=== PATIENT | female | born 1945 | race Caucasian/White ===

== ENCOUNTER 2018-03-24 15:10 | Emergency (ER) | payer OTHER ==
[~2018-03-24] VITALS: Ht 167.6 cm; Wt 78.5 kg
[~2018-03-24 15:10] MED LIST: ALBU90OI61 INH; AMOCLA500 PO; ASPI325 PO; ATOR10; CEPH500 PO; CITA20; CITA20 PO; CLON.1 PO; Citalopram HBr20 MG PO; DILT120 PO; DILT180 PO; Dulcolax5 MG PO; ESTR1; ESTR2 PO; GABA300 PO; HYDACE5 PO; IBUP400 PO; LEVFLO500 PO; LIDO5TP TOP; LISI20 PO; LOVA20; LOVA40 PO; Mirapex0.5 MG PO; Mupirocin22 GM TOP; NAPR500 PO; OXYACE5T PO; OXYC10TA19 PO; OXYC5; OXYC5 PO; PRED10 PO; Percocet 5-3251 EACH PO; TRAM50 PO; VENL75ER PO; VICODIN ES 7.51 EACH PO
[2018-03-24 16:12] LABS: BASOPHILS ABSOLUTE AUTO 0.08 K/mm3 (0.00-0.23); BASOPHILS PERCENT AUTO 1 % (0-2); EOSINOPHILS ABSOLUTE AUTO 0.31 K/mm3 (0.00-0.68); EOSINOPHILS PERCENT AUTO 3 % (0-6); Hemoglobin 13.7 g/dL (11.5-16.0); IMMATURE GRAN PERCENT AUTO 1 % (0-1); LYMPHOCYTES ABSOLUTE AUTO 1.66 K/mm3 (0.84-5.20); LYMPHOCYTES PERCENT AUTO 17 % (21-46); MONOCYTES ABSOLUTE AUTO 0.81 K/mm3 (0.16-1.47); MONOCYTES PERCENT AUTO 8 % (4-13); Mean Corpuscular HGB 28.7 pg (26.0-34.0); Mean Corpuscular HGB Conc 32.6 g/dL (31.5-36.5); Mean Corpuscular Volume 88 fL (80-100); Mean Platelet Volume 9.2 fL (9.1-12.4); NEUTROPHILS ABSOLUTE AUTO 6.95 K/mm3 (1.96-9.15); NEUTROPHILS PERCENT AUTO 70 % (41-73); Platelet Count 306 K/mm3 (150-400); RDW Coefficient Variation 13.7 % (11.7-14.2); RDW Standard Deviation 44.5 fL (35.1-46.3); Red Blood Cell Count 4.78 M/mm3 (3.80-5.20); White Blood Cell Count 9.91 K/mm3 (4.00-11.30)
[2018-03-24 16:37] LABS: Alanine Aminotransfer (ALT/SGP 29 U/L (12-78); Albumin, Blood 3.3 g/dL (3.4-5.0); Albumin/Globulin Ratio 0.8 (0.8-1.8); Alk Phos 170 U/L (50-136); Anion Gap 7 mmol/L (6-16); Aspartate Aminotrans (AST/SGOT 20 U/L (12-37); Bilirubin, Total 0.2 mg/dL (0.1-1.0); Blood Urea Nitrogen 16 mg/dL (8-24); Bun/Creatinine Ratio 17.7 (12.0-20.0); CO2, Blood 27 mmol/L (21-32); Calcium, Blood 9.2 mg/dL (8.5-10.1); Chloride, Blood 107 mmol/L (98-108); Globulin, Blood 4.3 g/dL (2.2-4.0); Glomerular Filtration Rate >60 (60-); Glucose, Blood 105 mg/dL (70-99); Potassium, Blood 4.1 mmol/L (3.5-5.5); Sodium, Blood 141 mmol/L (136-145); Total Protein, Blood 7.6 g/dL (6.4-8.2)
[2018-03-24 18:01] LABS: Source, Urine Clean Catch
[2018-03-24 18:08] LABS: Bilirubin, Urine Neg (Neg); Blood, Urine 1+ (Neg); Glucose Qualitative, Urine Neg (Neg); Ketones, Urine Neg (Neg); Leukocyte Esterase, Urine Neg (Neg); Nitrite, Urine Neg (Neg); Protein, Urine Neg (Neg); Urobilinogen, Urine NORM (Normal)
[2018-03-24 18:18] LABS: Appearance, Urine Clear (Clear); Color, Urine Pale Yellow (P-Yellow)
[2018-03-24 18:19] LABS: Bacteria Not Seen /hpf; Red Blood Cells, Urine Not Seen /hpf (0-2); Squamous Epithelial Cells Not Seen /hpf (Few); White Blood Cells, Urine Not Seen /hpf (0-5)
[2018-03-24 19:45] LABS: Troponin I <0.015 ng/mL (0.000-0.040)
[2018-03-24] MEDS ORDERED: Pepcid20 MG PO (21:01)
[2018-03-24] MEDS ORDERED: PROM25 PO (21:01)
== END 2018-03-24 21:21 | disposition home or self-care (01) ==
LOC: ER 15:10
PROVIDERS: Emergency Medicine
DX: R10.10 Upper abdominal pain, unspecified (principal); F17.210 Nicotine dependence, cigarettes, uncomplicated; Z91.040 Latex allergy status; Z88.8 Allergy status to other drugs, medicaments and biological substances; Z88.1 Allergy status to other antibiotic agents; Z79.899 Other long term (current) drug therapy
CPT/HCPCS: 36415; 80053; 81001; 83690; 84443; 84484; 85025; 93005; 93010; 96374; 96375; 96376; 99284; J2405; J2550; J3010; J7120

== ENCOUNTER 2018-04-07 00:40 | Emergency (ER) | payer OTHER ==
[~2018-04-07] VITALS: Ht 167.6 cm; Wt 77.6 kg
[~2018-04-07 00:40] MED LIST changes: +PROM25 PO; +Pepcid20 MG PO
[2018-04-07] MEDS ORDERED: PRAM.5 PO (01:34)
[2018-04-07] MEDS ORDERED: LISI20 PO (01:34)
[2018-04-07 01:36] LABS: BASOPHILS ABSOLUTE AUTO 0.08 K/mm3 (0.00-0.23); BASOPHILS PERCENT AUTO 1 % (0-2); EOSINOPHILS ABSOLUTE AUTO 0.34 K/mm3 (0.00-0.68); EOSINOPHILS PERCENT AUTO 4 % (0-6); Hematocrit 38.9 % (33.0-51.0); Hemoglobin 12.8 g/dL (11.5-16.0); IMMATURE GRAN ABSOLUTE AUTO 0.07 K/mm3 (0.00-0.10); IMMATURE GRAN PERCENT AUTO 1 % (0-1); LYMPHOCYTES ABSOLUTE AUTO 2.01 K/mm3 (0.84-5.20); LYMPHOCYTES PERCENT AUTO 23 % (21-46); MONOCYTES ABSOLUTE AUTO 0.97 K/mm3 (0.16-1.47); MONOCYTES PERCENT AUTO 11 % (4-13); Mean Corpuscular HGB 29.2 pg (26.0-34.0); Mean Corpuscular HGB Conc 32.9 g/dL (31.5-36.5); Mean Corpuscular Volume 89 fL (80-100); Mean Platelet Volume 9.1 fL (9.1-12.4); NEUTROPHILS ABSOLUTE AUTO 5.21 K/mm3 (1.96-9.15); NEUTROPHILS PERCENT AUTO 60 % (41-73); Platelet Count 299 K/mm3 (150-400); RDW Coefficient Variation 13.8 % (11.7-14.2); Red Blood Cell Count 4.39 M/mm3 (3.80-5.20); White Blood Cell Count 8.68 K/mm3 (4.00-11.30)
[2018-04-07 01:55] LABS: Albumin, Blood 2.8 g/dL (3.4-5.0); Albumin/Globulin Ratio 0.7 (0.8-1.8); Bilirubin, Total 0.3 mg/dL (0.1-1.0); Bun/Creatinine Ratio 22.5 (12.0-20.0); Calcium, Blood 9.2 mg/dL (8.5-10.1); Creatinine, Blood 0.98 mg/dL (0.40-1.00); Potassium, Blood 3.8 mmol/L (3.5-5.5); Total Protein, Blood 6.8 g/dL (6.4-8.2)
[2018-04-07 02:29] LABS: Source, Urine Clean Catch
[2018-04-07 02:40] LABS: Bilirubin, Urine Neg (Neg); Blood, Urine Neg (Neg); Glucose Qualitative, Urine Neg (Neg); Ketones, Urine Neg (Neg); Leukocyte Esterase, Urine Neg (Neg); Nitrite, Urine Neg (Neg); Protein, Urine Neg (Neg); Urobilinogen, Urine NORM (Normal)
[2018-04-07 02:45] LABS: Appearance, Urine Clear (Clear); Color, Urine Yellow (P-Yellow)
[2018-04-07] MEDS ORDERED: Miralax17 GM PO (04:42)
== END 2018-04-07 04:45 | disposition home or self-care (01) ==
LOC: ER 00:40
PROVIDERS: Emergency Medicine
DX: K59.00 Constipation, unspecified (principal); K57.30 Diverticulosis of large intestine without perforation or abscess without bleeding; F17.210 Nicotine dependence, cigarettes, uncomplicated; Z91.040 Latex allergy status; Z88.5 Allergy status to narcotic agent; Z88.1 Allergy status to other antibiotic agents; Z88.8 Allergy status to other drugs, medicaments and biological substances; Z79.899 Other long term (current) drug therapy
CPT/HCPCS: 36415; 74176; 80053; 81003; 83690; 85025; 93005; 93010; 96374; 99284; J3010

== ENCOUNTER 2018-12-23 13:11 | Emergency (ER) | payer OTHER ==
[~2018-12-23] VITALS: Ht 167.6 cm; Wt 71.7 kg
[~2018-12-23 13:11] MED LIST changes: +Miralax17 GM PO; +PRAM.5 PO
[2018-12-23] MEDS ORDERED: TIOT18 INH (14:04)
[2018-12-23] MEDS ORDERED: ASPI81CH PO (14:04)
[2018-12-23] MEDS ORDERED: VENL75ER PO (14:04)
[2018-12-23] MEDS ORDERED: Ultram50 MG PO (14:13)
== END 2018-12-23 14:15 | disposition home or self-care (01) ==
LOC: ER 13:11
DX: M25.511 Pain in right shoulder (principal); M19.90 Unspecified osteoarthritis, unspecified site; M79.10 Myalgia, unspecified site; F17.210 Nicotine dependence, cigarettes, uncomplicated; Z88.5 Allergy status to narcotic agent; Z91.040 Latex allergy status; Z88.8 Allergy status to other drugs, medicaments and biological substances; Z79.899 Other long term (current) drug therapy
CPT/HCPCS: 99282

== ENCOUNTER 2019-05-31 20:57 | Inpatient (IN) | payer OTHER ==
[~2019-05-31] VITALS: Ht 167.6 cm; Wt 80.3 kg
[~2019-05-31 20:57] MED LIST changes: +ASPI81CH PO; +TIOT18 INH; +Ultram50 MG PO
[2019-05-31 21:27] LABS: BASOPHILS PERCENT AUTO 1 % (0-2); EOSINOPHILS ABSOLUTE AUTO 0.44 K/mm3 (0.00-0.68); EOSINOPHILS PERCENT AUTO 4 % (0-6); Hematocrit 41.2 % (33.0-51.0); Hemoglobin 13.5 g/dL (11.5-16.0); IMMATURE GRAN ABSOLUTE AUTO 0.08 K/mm3 (0.00-0.10); IMMATURE GRAN PERCENT AUTO 1 % (0-1); LYMPHOCYTES ABSOLUTE AUTO 2.42 K/mm3 (0.84-5.20); LYMPHOCYTES PERCENT AUTO 24 % (21-46); MONOCYTES PERCENT AUTO 11 % (4-13); Mean Corpuscular HGB Conc 32.8 g/dL (31.5-36.5); Mean Corpuscular Volume 88 fL (80-100); Mean Platelet Volume 9.5 fL (9.1-12.4); NEUTROPHILS ABSOLUTE AUTO 5.96 K/mm3 (1.96-9.15); NEUTROPHILS PERCENT AUTO 59 % (41-73); Platelet Count 293 K/mm3 (150-400); RDW Coefficient Variation 13.9 % (11.7-14.2); RDW Standard Deviation 45.5 fL (35.1-46.3); Red Blood Cell Count 4.66 M/mm3 (3.80-5.20)
[2019-05-31 21:49] LABS: Albumin, Blood 3.5 g/dL (3.4-5.0); Albumin/Globulin Ratio 0.9 (0.8-1.8); Bilirubin, Total 0.3 mg/dL (0.1-1.0); Bun/Creatinine Ratio 14.5 (12.0-20.0); Calcium, Blood 9.1 mg/dL (8.5-10.1); Creatinine, Blood 1.52 mg/dL (0.40-1.00); Globulin, Blood 3.9 g/dL (2.2-4.0); Potassium, Blood 3.9 mmol/L (3.5-5.5); Total Protein, Blood 7.4 g/dL (6.4-8.2)
[2019-05-31 22:07] LABS: Troponin I 1.27 ng/mL (0.000-0.040)
--- NOTE | 2019-06-01 04:06 | NUR ---
SHIFT SUMMARY PT ARRIVED [facility] IN NO DISTRESS. PT DENIES ANY CX PAIN. PT HAS BEEN SLEEPING WELL SINCE ARRIVING TO FLOOR. PT DOES CONTINUE TO HAVE A HARSH HACKING COUGH AT TIMES. PT IS CURRENTLY SLEEPING AND BREATHING EASY. WILL CONTINUE TO MONITOR. CALL LIGHT IN REACH.
--- NOTE | 2019-06-01 14:12 | NUR ---
BOTH AND HAVE ROUNDED ON HER. SHE WAS NPO FOR BREAKFAST BUT RECEIVED LUNCH BECAUSE HER ANGIOGRAM WILL BE TOMORROW MORNING. SHE WILL BE NPO AFTER MN EXCEPT WATER AND MEDS. NO CP. HER TROPONIN HAS NOW GONE DOWN TO 0.854. TELE IS NSR. SHE SAID SHE HAD DIFFICULTY VOIDING FIRST THING THIS MORNING BUT WAS ABLE TO LATER. SINCE THEN IVF'S HAVE BEEN STARTED AT 100/HR.SHE HAD A ROOM FULL OF COMPANY THAT JUST LEFT. NOW SHE WANTS TO TAKE A NAP.
--- NOTE | 2019-06-01 15:33 | NUR ---
ASLEEP. NO COMPLAINTS.
--- NOTE | 2019-06-01 17:32 | NUR ---
SHE HAS BEEN NAPPING A LOT SINCE HER COMPANY LEFT AFTER LUNCH. NO C/O CP TODAY. VOIDING WELL. IVF'S STARTED AT NOON AND ARE ONGOING. LAST TROPONIN ON A DOWNWARD TREND.
--- NOTE | 2019-06-01 18:09 | NUR ---
SHE HAS 2 VISITORS. SHE IS EATING DINNER. NO COMPLAINTS. SHE UNDERSTANDS SHE WILL BE NPO AFTER MIDNIGHT EXCEPT FOR WATER AND MEDS.
--- NOTE | 2019-06-02 04:03 | NUR ---
Shift summary: pt appeared to have slept well overnight with no c/o discomfort. Pt npo p mn for an angiocath in am. Pt on telemetry- NSR at 70. No chest pain reported.
[2019-06-02 05:52] LABS: Bun/Creatinine Ratio 19.4 (12.0-20.0); Calcium, Blood 8.8 mg/dL (8.5-10.1); Creatinine, Blood 1.03 mg/dL (0.40-1.00); Potassium, Blood 4.7 mmol/L (3.5-5.5)
--- NOTE | 2019-06-02 06:46 | NUR ---
Pt to bolt labeler for an angiogram
--- NOTE | 2019-06-02 13:21 | NUR ---
PT ARRIVAL. PT ARRIVED ON UNIT VIA W/C AND IS S/P ANGIO WITH STENT PLACEMENT. PT HAS RIGHT WRIST SITE WITH TR BAND WITH 16MLS OF AIR. PT DENIES ANY CHEST PAIN/PRESSURE, N/V OR SOB AT THIS TIME. VS STABLE, WILL CONTINUE TO MONITOR.
--- NOTE | 2019-06-02 17:45 | NUR ---
SHIFT SUMMARY. NO ACUTE CHANGES NOTED. PT DENIES ANY CHEST PAIN/PRESSURE, ANGIO SITE IS C/D/I, TR BAND IS STILL IN PLACE DUE TO SOME BLEEDING DURING DEFLATION. PT RECIEVED AGGRASTAT, HEPARIN, BRILENTA AND ELIQUIS. PT'S VS HAVE BEEN STABLE. PT IS A&Ox4 AND SBA IN THE ROOM. FAMILY AT THE BEDSIDE. CALL LIGHT INREACH, BED IS LOCKED AND LOW WILL CONTINUE TO MONITOR UNTIL REPORT IS GIVEN TO ONCOMING RN.
--- NOTE | 2019-06-02 23:25 | NUR ---
Assumed care of pt at approx 1900. Pt presents with family at bedside at arrival, breathing easy and unlabored, denies chest pain or pressure. Pt with arm board and TR band in place at time of shift change. At time of shift change, Pt with 8cc in balloon, the pt was fully recovered at 2320. New IV access to pt LFA. BANNER IV access D/C d/t leaking found upon assessment. Pt with VSS. Pt with complaint of nasal congestion, Provider Danny called and orders recieved to give saline nasal spray PRN. Pt with stated relief. No changes from initial shift assessment. Pt family remains at bedside this night. Report given to YEE Unger to assume care at this time.
--- NOTE | 2019-06-03 | NUR ---
ASSUMED CARE PT CARE ASSUMED AT APPROXIMATELY 0000 THIS AM. PT IS RESTING IN BED WITH SON AT BEDSIDE. R RADIAL SITE NOTED TO HAVE EDEMA IN SURROUNDING ARM. TR BAND REMAINS IN PLACE, COMPLETELY DEFLATED WITH SMALL AMOUNT OF DRY, RED DRAINAGE UNDER. FOREARM IS SLIGHTLY HARD ABOVE TR SITE, BUT NOT NOTED SWELLING OR HEMATOMA TO THIS AREA. SMALL AMOUNT OF BRUISING NOTED UNDER INCISION SITE. PT DENIES PAIN ON PALPATION TO SITE AND FOREARM. PT DENIES ANY PAIN OR DYSPNEA AT THIS TIME. VSS. WILL CONTINUE TO MONITOR. BED IN LOW POSITION, CALL LIGHT IN REACH.
--- NOTE | 2019-06-03 06:49 | NUR ---
SHIFT SUMMARY PT HAS REMAINED AOX4 THROUGHOUT SHIFT. VSS. PLEASANT AND COOPERATIVE WITH CARE. R RADIAL SITE REMAINS UNCHANGED FROM INITIAL ASSESSMENT APON ASSUMPTION OF CARE AT APPROXIMATELY 0000. CLEAR OCCLUSIVE DRESSING IN PLACE WITH ARM BOARD. EDUCATION REITERATED ON MINIMIZING USE OF R WRIST AT THIS TIME. PT CONTINUES TO HAVE SWELLING IN ARM. PT DENIES PAIN ON PALPATION OF FOREARM. SLIGHT BRUISING NOTED AROUND PUNCTURE SITE. NO LEAKING FROM SITE NOTED. PT CONTINUES TO AMBULATE WITH STANDBY ASSIST TO BATHROOM. PT REPORTING SOME "GAS PAIN" LAST NIGHT AND ASKED FOR SOMETHING FOR RELIEF, BUT WAS SLEEPING WHEN STAFF WAS IN TO ASSIST- DID NOT REPORT DISCOMFORT WHEN AWAKE LATER IN AM. FAMILY HAS REMAINED AT BEDSIDE THROUGHOUT THE NIGHT. NO OTHER CHANGES NOTED FROM SHIFT ASSESSMENT. WILL CONTINUE TO MONITOR AND REPORT TO ONCOMING SHIFT RN. BED IN LOW POSITION, CALL LIGHT IN REACH.
--- NOTE | 2019-06-03 08:28 | NUR ---
AM NOTE. ASSUMED CARE OF PT APROX 0700. PT IS A&Ox4 AND IND IN THE ROOM. PT IS S/P ANGIO WITH RIGHT WRIST SITE. SITE IS C/D/I WITH SOME BRUISING AND SWELLING NOTED IN THE ARM FROM INFILTRATION OF HER IV. PT DENIES ANY CHEST PAIN/PRESSURE AT THIS TIME. PT'S VS STABLE. L/S CLEAR T/O DIM IN THE BASES PT IS ON RA WITH O2 SATS >90%. PT HAD BM THIS MORNING AND NOTED THERE WAS BLOOD IN THE TOILET, BLOOD WAS NOTED TO BE ON THE STOOL BUT THE STOOL WAS LIGHT BROWN, SOFT AND FORMED. PT DENIED A KNOWN HX OF HEMORRHOIDS OR GI BLEEDS. PT STATES THIS HAS NEVER HAPPENED BEFORE. CALL LIGHT IN REACH, BED IS LOCKED AND LOW WILL CONTINUE TO MONITOR.
[2019-06-03] MEDS ORDERED: ATOR40TA PO (13:18)
[2019-06-03] MEDS ORDERED: ASPI81CH PO (13:18)
[2019-06-03] MEDS ORDERED: METO25ER PO (13:19)
[2019-06-03] MEDS ORDERED: TICA90TA PO (13:19)
== END 2019-06-03 13:40 | disposition home or self-care (01) | DRG 247 ==
LOC: ER 20:57 → MEDS 22:48 → PCU 06-02 09:52
PROVIDERS: Emergency Medicine; Hospitalist; ADMIT Family Medicine
PROC: 4A023N7 Measurement of Cardiac Sampling and Pressure, Left Heart, Percutaneous Approach (ICD-10-PCS; principal; 2019-06-02)
PROC: 027034Z Dilation of Coronary Artery, One Artery with Drug-eluting Intraluminal Device, Percutaneous Approach (ICD-10-PCS; 2019-06-02)
PROC: B210YZZ Fluoroscopy of Single Coronary Artery using Other Contrast (ICD-10-PCS; 2019-06-02)
DX: I21.4 Non-ST elevation (NSTEMI) myocardial infarction (principal); N17.9 Acute kidney failure, unspecified; I25.10 Atherosclerotic heart disease of native coronary artery without angina pectoris; I10 Essential (primary) hypertension; F17.210 Nicotine dependence, cigarettes, uncomplicated
CPT/HCPCS: 36415; 71046; 80048; 80053; 84484; 85025; 85347; 93005; 93010; 93306; 93458; 94640; 99152; 99153; 99285-25; C1725; C1769; C1874; C1887; C1894; C9600; J1644; J2250; J2405; J3010; J3246; J7030; Q9967

== ENCOUNTER 2019-08-06 21:12 | Emergency (ER) | payer OTHER ==
[~2019-08-06] VITALS: Ht 167.6 cm; Wt 75.3 kg
[~2019-08-06 21:12] MED LIST changes: +ATOR40TA PO; +METO25ER PO; +TICA90TA PO
[2019-08-06 22:13] LABS: BASOPHILS ABSOLUTE AUTO 0.09 K/mm3 (0.00-0.23); BASOPHILS PERCENT AUTO 1 % (0-2); EOSINOPHILS ABSOLUTE AUTO 0.46 K/mm3 (0.00-0.68); EOSINOPHILS PERCENT AUTO 4 % (0-6); Hematocrit 26.6 % (33.0-51.0); IMMATURE GRAN ABSOLUTE AUTO 0.21 K/mm3 (0.00-0.10); IMMATURE GRAN PERCENT AUTO 2 % (0-1); LYMPHOCYTES PERCENT AUTO 15 % (21-46); MONOCYTES ABSOLUTE AUTO 0.99 K/mm3 (0.16-1.47); MONOCYTES PERCENT AUTO 9 % (4-13); Mean Corpuscular HGB 26.1 pg (26.0-34.0); Mean Corpuscular HGB Conc 30.1 g/dL (31.5-36.5); Mean Corpuscular Volume 87 fL (80-100); Mean Platelet Volume 9.6 fL (9.1-12.4); NEUTROPHILS ABSOLUTE AUTO 8.26 K/mm3 (1.96-9.15); NEUTROPHILS PERCENT AUTO 71 % (41-73); Platelet Count 426 K/mm3 (150-400); RDW Standard Deviation 47.9 fL (35.1-46.3); Red Blood Cell Count 3.07 M/mm3 (3.80-5.20); White Blood Cell Count 11.71 K/mm3 (4.00-11.30)
[2019-08-06 22:31] LABS: Albumin, Blood 3.1 g/dL (3.4-5.0); Albumin/Globulin Ratio 0.8 (0.8-1.8); Bilirubin, Total 0.2 mg/dL (0.1-1.0); Bun/Creatinine Ratio 22.5 (12.0-20.0); Calcium, Blood 9.1 mg/dL (8.5-10.1); Creatinine, Blood 1.2 mg/dL (0.40-1.00); Globulin, Blood 3.9 g/dL (2.2-4.0)
[2019-08-06 23:58] LABS: Source, Urine Clean Catch
[2019-08-07] MEDS ORDERED: VARE1
[2019-08-07 00:11] LABS: Bilirubin, Urine Neg (Neg); Blood, Urine Neg (Neg); Glucose Qualitative, Urine Neg (Neg); Ketones, Urine 1+ (Neg); Leukocyte Esterase, Urine 1+ (Neg); Nitrite, Urine Neg (Neg); Protein, Urine 1+ (Neg); Specific Gravity, Urine 1.025 (1.003-1.022); Urobilinogen, Urine 1+ (Normal)
[2019-08-07] MEDS ORDERED: Ferrous Sulfat325 MG PO (00:17)
[2019-08-07 00:18] LABS: Appearance, Urine Clear (Clear); Color, Urine Yellow (P-Yellow)
[2019-08-07 00:19] LABS: Bacteria Few /hpf; Red Blood Cells, Urine Not Seen /hpf (0-2); Squamous Epithelial Cells Few /hpf (Few)
== END 2019-08-07 01:10 | disposition home or self-care (01) ==
LOC: ER 21:12
PROVIDERS: Emergency Medicine
DX: D64.9 Anemia, unspecified (principal); I25.2 Old myocardial infarction; F17.210 Nicotine dependence, cigarettes, uncomplicated; Z91.040 Latex allergy status; Z88.5 Allergy status to narcotic agent; Z88.8 Allergy status to other drugs, medicaments and biological substances; Z88.1 Allergy status to other antibiotic agents; Z79.899 Other long term (current) drug therapy; Z79.82 Long term (current) use of aspirin; Z79.02 Long term (current) use of antithrombotics/antiplatelets
CPT/HCPCS: 36415; 80053; 81001; 85025; 87086; 93005; 93010; 99283-25

== ENCOUNTER → 2019-08-19 | Outpatient (CLI) | payer OTHER ==
[~2019-08-19] MED LIST changes: +Ferrous Sulfat325 MG PO; +VARE1
[2019-08-19 18:27] LABS: BASOPHILS ABSOLUTE AUTO 0.09 K/mm3 (0.00-0.23); BASOPHILS PERCENT AUTO 1 % (0-2); EOSINOPHILS ABSOLUTE AUTO 0.49 K/mm3 (0.00-0.68); EOSINOPHILS PERCENT AUTO 4 % (0-6); Hematocrit 27.9 % (33.0-51.0); Hemoglobin 8.2 g/dL (11.5-16.0); IMMATURE GRAN PERCENT AUTO 2 % (0-1); LYMPHOCYTES ABSOLUTE AUTO 1.69 K/mm3 (0.84-5.20); LYMPHOCYTES PERCENT AUTO 14 % (21-46); MONOCYTES PERCENT AUTO 8 % (4-13); Mean Corpuscular HGB 27.3 pg (26.0-34.0); Mean Corpuscular HGB Conc 29.4 g/dL (31.5-36.5); NEUTROPHILS ABSOLUTE AUTO 8.47 K/mm3 (1.96-9.15); NEUTROPHILS PERCENT AUTO 71 % (41-73); Platelet Count 400 K/mm3 (150-400); RDW Coefficient Variation 21.8 % (11.7-14.2); RDW Standard Deviation 71.7 fL (35.1-46.3); White Blood Cell Count 11.94 K/mm3 (4.00-11.30)
[2019-08-19 18:28] LABS: Mean Corpuscular Volume 93 fL (80-100)
[2019-08-19 18:31] LABS: Percent Saturation 75.6 % (15.0-50.0)
== END | disposition home or self-care (01) ==
LOC: LAB SHORT 14:35 → LAB 14:35
PROVIDERS: Hospitalist
DX: D50.9 Iron deficiency anemia, unspecified (principal)
CPT/HCPCS: 83540; 83550; 85025

== ENCOUNTER 2019-12-24 18:24 | Inpatient (IN) | payer OTHER ==
[~2019-12-24] VITALS: Ht 167.6 cm; Wt 70.8 kg
[2019-12-24 19:21] LABS: BASOPHILS ABSOLUTE AUTO 0.08 K/mm3 (0.00-0.23); BASOPHILS PERCENT AUTO 1 % (0-2); EOSINOPHILS ABSOLUTE AUTO 0.33 K/mm3 (0.00-0.68); EOSINOPHILS PERCENT AUTO 3 % (0-6); Hematocrit 21.7 % (33.0-51.0); Hemoglobin 6.6 g/dL (11.5-16.0); IMMATURE GRAN ABSOLUTE AUTO 0.08 K/mm3 (0.00-0.10); IMMATURE GRAN PERCENT AUTO 1 % (0-1); LYMPHOCYTES ABSOLUTE AUTO 1.83 K/mm3 (0.84-5.20); LYMPHOCYTES PERCENT AUTO 17 % (21-46); MONOCYTES ABSOLUTE AUTO 1.18 K/mm3 (0.16-1.47); MONOCYTES PERCENT AUTO 11 % (4-13); Mean Corpuscular HGB 26.9 pg (26.0-34.0); Mean Corpuscular HGB Conc 30.4 g/dL (31.5-36.5); Mean Corpuscular Volume 89 fL (80-100); Mean Platelet Volume 9.5 fL (9.1-12.4); NEUTROPHILS ABSOLUTE AUTO 7.07 K/mm3 (1.96-9.15); NEUTROPHILS PERCENT AUTO 67 % (41-73); Platelet Count 370 K/mm3 (150-400); RDW Coefficient Variation 15.1 % (11.7-14.2); RDW Standard Deviation 48.9 fL (35.1-46.3); Red Blood Cell Count 2.45 M/mm3 (3.80-5.20); White Blood Cell Count 10.57 K/mm3 (4.00-11.30)
[2019-12-24 19:55] LABS: Troponin I <0.015 ng/mL (0.000-0.040)
[2019-12-24 20:02] LABS: Alanine Aminotransfer (ALT/SGP 18 U/L (12-78); Albumin, Blood 2.8 g/dL (3.4-5.0); Albumin/Globulin Ratio 0.8 (0.8-1.8); Alk Phos 186 U/L (50-136); Anion Gap 4 mmol/L (6-16); Aspartate Aminotrans (AST/SGOT 11 U/L (12-37); Bilirubin, Total 0.1 mg/dL (0.1-1.0); Blood Urea Nitrogen 22 mg/dL (8-24); Bun/Creatinine Ratio 26.3 (12.0-20.0); CO2, Blood 25 mmol/L (21-32); Calcium, Blood 8.4 mg/dL (8.5-10.1); Chloride, Blood 112 mmol/L (98-108); Creatinine, Blood 0.84 mg/dL (0.40-1.00); Globulin, Blood 3.5 g/dL (2.2-4.0); Glomerular Filtration Rate >60 (60-); Glucose, Blood 87 mg/dL (70-99); Potassium, Blood 3.9 mmol/L (3.5-5.5); Sodium, Blood 141 mmol/L (136-145); Total Protein, Blood 6.3 g/dL (6.4-8.2)
[2019-12-24 22:14] LABS: Source, Urine Clean Catch
[2019-12-24 22:16] LABS: Bilirubin, Urine Neg (Neg); Blood, Urine Neg (Neg); Glucose Qualitative, Urine Neg (Neg); Ketones, Urine Neg (Neg); Leukocyte Esterase, Urine Neg (Neg); Nitrite, Urine Neg (Neg); Protein, Urine Neg (Neg); Specific Gravity, Urine 1.025 (1.003-1.022); Urobilinogen, Urine NORM (Normal)
[2019-12-24 22:31] LABS: Appearance, Urine Clear (Clear); Color, Urine Yellow (P-Yellow)
[2019-12-25 01:03] LABS: Hematocrit 23.7 % (33.0-51.0); Hemoglobin 7.1 g/dL (11.5-16.0)
--- NOTE | 2019-12-25 02:42 | NUR ---
74 YR OLD FEMALE ADMITTED TO FLOOR FROM THE ED WITH ANEMIA. 2 UNITS OF PRBC WERE ORDERED TO BE INFUSED ASA HER HGB WAS 6.6. PLACED ON MED TELE, WAS SINUS RHYTHM IN THE 80'S BUT CHANGED TO A FIB AT 124. WAS NOTIFIED, ORDERS FOR LOPRESSOR 5 MG IV NOW THEN ANOTHER 5 MG IV IN 1/2 HR LATER. FIRST DOSE GIVEN AND BLOOD STARTED. BLOOD INFUSING AND A FIB CONTINUES. WILL ADMIN SECOND DOSE ORDERED.
--- NOTE | 2019-12-25 04:40 | NUR ---
PT ADMITTED EARLIER FROM THE ED WITH ANEMIA, CURRENTLY RECEIVING FIRST (OF 2) UNITS OF BLOOD. TOLERATING WELL. RECEIVED LOPRESSOR 5 MG IV X 2 PER MD ORDER EARLIER FOR A FIB AND HR IN THE 120'S. LATEST HR IN THE 80'S. ASYMPTOMATIC, BUT STILL IN A FIB. CALL LIGHT IN REACH. WILL CONTINUE TO MONITOR.
--- NOTE | 2019-12-25 06:28 | NUR ---
FIRST UNIT PRBC INFUSED. HGB 7.1, CALL PLACED TO MD BOOM SUPERVISOR. ORDER RECEIVED TO ADMIN THE 2ND (OF 2) UNITS. NO NOTED SIGNS OF ADVERSE REACTION TO FIRST UNIT.
[2019-12-25 07:21] LABS: Hematocrit 26.8 % (33.0-51.0); Hemoglobin 8.2 g/dL (11.5-16.0); Mean Corpuscular HGB Conc 30.6 g/dL (31.5-36.5); Mean Corpuscular Volume 88 fL (80-100); Mean Platelet Volume 9.4 fL (9.1-12.4); Platelet Count 352 K/mm3 (150-400); RDW Standard Deviation 48.1 fL (35.1-46.3); Red Blood Cell Count 3.04 M/mm3 (3.80-5.20); White Blood Cell Count 9.25 K/mm3 (4.00-11.30)
[2019-12-25 07:43] LABS: Alanine Aminotransfer (ALT/SGP 13 U/L (12-78); Albumin, Blood 2.7 g/dL (3.4-5.0); Albumin/Globulin Ratio 0.8 (0.8-1.8); Alk Phos 167 U/L (50-136); Anion Gap 7 mmol/L (6-16); Aspartate Aminotrans (AST/SGOT 12 U/L (12-37); Bilirubin, Total 0.4 mg/dL (0.1-1.0); Blood Urea Nitrogen 16 mg/dL (8-24); Bun/Creatinine Ratio 19.2 (12.0-20.0); CO2, Blood 24 mmol/L (21-32); Calcium, Blood 8.3 mg/dL (8.5-10.1); Chloride, Blood 112 mmol/L (98-108); Creatinine, Blood 0.83 mg/dL (0.40-1.00); Globulin, Blood 3.5 g/dL (2.2-4.0); Glomerular Filtration Rate >60 (60-); Glucose, Blood 100 mg/dL (70-99); Potassium, Blood 4.3 mmol/L (3.5-5.5); Sodium, Blood 143 mmol/L (136-145); Total Protein, Blood 6.2 g/dL (6.4-8.2)
--- NOTE | 2019-12-25 10:15 | NUR ---
ASSUMED CARE FROM ALFONSO RN, PT TRANSFERED FROM [facility] ROOM ON MED FLOOR. BLOOD PRODUCTS CURRENTLY INFUSING VITALS STABLE AND LUNGS CLEAR,
[2019-12-25 13:23] LABS: Hematocrit 26.6 % (33.0-51.0); Hemoglobin 8.4 g/dL (11.5-16.0)
--- NOTE | 2019-12-25 18:36 | NUR ---
SHIFT SUMMARY PT RECIEVED 1 UNIT OF BLOOD PRODUCTS AFTER TRANSFER OF CARE TO THIS RN. PT ROHINI PAIN DURING THIS SHIFT AND HAS TOLORATED CLEAR LIQUIDS WELL. BOWEL PREP STARTED AT 1730 FOR PROCEDURE TO AM. CALL LIGHT IN REACH AND WILL REPORT TO NOC RN.
[2019-12-25 19:41] LABS: Hematocrit 29.3 % (33.0-51.0); Hemoglobin 9.2 g/dL (11.5-16.0)
--- NOTE | 2019-12-26 04:14 | NUR ---
DISCHARGE COORDINATOR SUMMARY PT A/O X4. DENIES PAIN, NAUSEA, SOB. INDEPENDENT IN ROOM. PT FINISHED GOLYTELY AND HAS MULTIPLE LOOSE STOOLS THROUGHOUT THE NIGHT. PT HAS BEEN NPO SINCE MIDNIGHT. VSS, NO ACUTE CHANGES. CALL LIGHT WITHIN REACH.
--- NOTE | 2019-12-26 07:59 | NUR ---
History, Chart, Medications and Allergies reviewed before start of procedure. Patient confirms NPO status and agrees with scheduled surgery. Faint scattered expiratory wheezes auscultated t/o.
--- NOTE | 2019-12-26 08:38 | NUR ---
12/26/19 0838 Francy Vazquez MONITOR INTACT WITH CONTINUOUS PULSE OXIMETRY AND INTERMITTENT BP.
[2019-12-26 10:36] LABS: BASOPHILS ABSOLUTE AUTO 0.07 K/mm3 (0.00-0.23); BASOPHILS PERCENT AUTO 1 % (0-2); EOSINOPHILS ABSOLUTE AUTO 0.24 K/mm3 (0.00-0.68); EOSINOPHILS PERCENT AUTO 3 % (0-6); Hematocrit 26.2 % (33.0-51.0); IMMATURE GRAN ABSOLUTE AUTO 0.05 K/mm3 (0.00-0.10); IMMATURE GRAN PERCENT AUTO 1 % (0-1); LYMPHOCYTES ABSOLUTE AUTO 0.93 K/mm3 (0.84-5.20); LYMPHOCYTES PERCENT AUTO 13 % (21-46); MONOCYTES ABSOLUTE AUTO 0.81 K/mm3 (0.16-1.47); MONOCYTES PERCENT AUTO 11 % (4-13); Mean Corpuscular HGB 26.8 pg (26.0-34.0); Mean Corpuscular HGB Conc 30.5 g/dL (31.5-36.5); Mean Corpuscular Volume 88 fL (80-100); Mean Platelet Volume 9.5 fL (9.1-12.4); NEUTROPHILS ABSOLUTE AUTO 5.11 K/mm3 (1.96-9.15); NEUTROPHILS PERCENT AUTO 71 % (41-73); Platelet Count 307 K/mm3 (150-400); RDW Coefficient Variation 15.1 % (11.7-14.2); RDW Standard Deviation 48.2 fL (35.1-46.3); Red Blood Cell Count 2.98 M/mm3 (3.80-5.20); White Blood Cell Count 7.21 K/mm3 (4.00-11.30)
[2019-12-26 10:52] LABS: Anion Gap 6 mmol/L (6-16); Blood Urea Nitrogen 11 mg/dL (8-24); Bun/Creatinine Ratio 11.9 (12.0-20.0); CO2, Blood 28 mmol/L (21-32); Calcium, Blood 8.2 mg/dL (8.5-10.1); Chloride, Blood 110 mmol/L (98-108); Creatinine, Blood 0.92 mg/dL (0.40-1.00); Glomerular Filtration Rate >60 (60-); Glucose, Blood 97 mg/dL (70-99); Potassium, Blood 3.9 mmol/L (3.5-5.5); Sodium, Blood 144 mmol/L (136-145)
[2019-12-26] MEDS ORDERED: PANT20 PO (16:59)
--- NOTE | 2019-12-26 18:10 | NUR ---
PATIENT DISCHARGED HOME, MEDICATIONS FAXED TO PHARMACY, ALL IV LINES DISCONTINUED.
== END 2019-12-26 17:12 | disposition home or self-care (01) | DRG 378 ==
LOC: ER 18:24 → MEDS 18:25
PROVIDERS: Internal Medicine; Internal Medicine Gastroenterology; Physician Assistant; ADMIT Internal Medicine
PROC: 0DD68ZX Extraction of Stomach, Via Natural or Artificial Opening Endoscopic, Diagnostic (ICD-10-PCS; principal; 2019-12-26 08:30)
PROC: 0D598ZZ Destruction of Duodenum, Via Natural or Artificial Opening Endoscopic (ICD-10-PCS; 2019-12-26 08:30)
PROC: 0D5H8ZZ Destruction of Cecum, Via Natural or Artificial Opening Endoscopic (ICD-10-PCS; 2019-12-26 08:30)
DX: K31.811 Angiodysplasia of stomach and duodenum with bleeding (principal); D62 Acute posthemorrhagic anemia; J44.9 Chronic obstructive pulmonary disease, unspecified; I25.10 Atherosclerotic heart disease of native coronary artery without angina pectoris; I25.2 Old myocardial infarction; M79.7 Fibromyalgia; Z90.5 Acquired absence of kidney; M19.90 Unspecified osteoarthritis, unspecified site; F17.210 Nicotine dependence, cigarettes, uncomplicated; E78.5 Hyperlipidemia, unspecified; Z85.528 Personal history of other malignant neoplasm of kidney; I10 Essential (primary) hypertension; K44.9 Diaphragmatic hernia without obstruction or gangrene
CPT/HCPCS: 36415; 71045; 80048; 80053; 81003; 82272; 83880; 84484; 85014; 85018; 85025; 85027; 86850; 86900; 86901; 86920; 90686; 93005; 93010; 94640; 94760; 96374; 96375; 96376; 99285-25; A9270-GY; C9113; G0008; G0378; J1430; J2405; J2704; J7120; P9016

== ENCOUNTER → 2019-12-31 | Outpatient (CLI) | payer OTHER ==
[~2019-12-31] MED LIST changes: +PANT20 PO
[2019-12-31 19:59] LABS: Hematocrit 32.4 % (33.0-51.0); Hemoglobin 9.6 g/dL (11.5-16.0)
== END | disposition home or self-care (01) ==
LOC: LAB SHORT 18:33 → LAB 18:33
PROVIDERS: Hospitalist
DX: K92.2 Gastrointestinal hemorrhage, unspecified (principal)
CPT/HCPCS: 85014; 85018

== ENCOUNTER 2021-02-01 10:07 | Day surgery (SDC) | payer OTHER ==
[~2021-02-01] VITALS: Ht 162.6 cm; Wt 80.8 kg
[~2021-02-01 10:07] MED LIST changes: +ATORVASTATIN CA40 M1 PO; +FERSU300 PO; +PRAMIPEXOLE DI0.5 M1 PO; +Toprol Xl25 MG PO
--- NOTE | 2021-02-01 11:26 | NUR ---
02/01/21 1126 Lucie Arora LOWER SCOPE USED FOR PUSH ENTERESCOPY
== END 2021-02-01 16:00 | disposition home or self-care (01) ==
LOC: ORSCSDS 10:07
PROVIDERS: Internal Medicine Gastroenterology
PROC: 0DB78ZX Excision of Stomach, Pylorus, Via Natural or Artificial Opening Endoscopic, Diagnostic (ICD-10-PCS; principal; 2021-02-01 11:30)
PROC: 0DB98ZX Excision of Duodenum, Via Natural or Artificial Opening Endoscopic, Diagnostic (ICD-10-PCS; principal; 2021-02-01 11:30)
DX: D50.9 Iron deficiency anemia, unspecified (principal); K29.70 Gastritis, unspecified, without bleeding; K29.80 Duodenitis without bleeding; I10 Essential (primary) hypertension; E78.5 Hyperlipidemia, unspecified; I25.2 Old myocardial infarction; N18.9 Chronic kidney disease, unspecified; M79.7 Fibromyalgia; Z79.899 Other long term (current) drug therapy; J44.9 Chronic obstructive pulmonary disease, unspecified; Z87.891 Personal history of nicotine dependence
CPT/HCPCS: 88305; 88342; J1610; J2704; J7120

== ENCOUNTER 2021-07-01 11:08 | Emergency (ER) | payer OTHER ==
[~2021-07-01] VITALS: Ht 165.1 cm; Wt 83.0 kg
[2021-07-01 12:01] LABS: BASOPHILS ABSOLUTE AUTO 0.08 K/mm3 (0.00-0.23); BASOPHILS PERCENT AUTO 1 % (0-2); EOSINOPHILS ABSOLUTE AUTO 0.19 K/mm3 (0.00-0.68); EOSINOPHILS PERCENT AUTO 2 % (0-6); Hematocrit 41.6 % (33.0-51.0); IMMATURE GRAN ABSOLUTE AUTO 0.06 K/mm3 (0.00-0.10); IMMATURE GRAN PERCENT AUTO 1 % (0-1); LYMPHOCYTES ABSOLUTE AUTO 1.11 K/mm3 (0.84-5.20); LYMPHOCYTES PERCENT AUTO 13 % (21-46); MONOCYTES ABSOLUTE AUTO 0.82 K/mm3 (0.16-1.47); MONOCYTES PERCENT AUTO 10 % (4-13); Mean Corpuscular HGB Conc 33.7 g/dL (31.5-36.5); Mean Corpuscular Volume 86 fL (80-100); Mean Platelet Volume 9.5 fL (9.1-12.4); NEUTROPHILS ABSOLUTE AUTO 6.06 K/mm3 (1.96-9.15); NEUTROPHILS PERCENT AUTO 73 % (41-73); Platelet Count 295 K/mm3 (150-400); RDW Coefficient Variation 12.7 % (11.7-14.2); RDW Standard Deviation 39.9 fL (35.1-46.3); Red Blood Cell Count 4.82 M/mm3 (3.80-5.20); White Blood Cell Count 8.32 K/mm3 (4.00-11.30)
[2021-07-01 12:22] LABS: Alanine Aminotransfer (ALT/SGP 24 U/L (12-78); Albumin, Blood 3.7 g/dL (3.4-5.0); Albumin/Globulin Ratio 0.9 (0.8-1.8); Alk Phos 118 U/L (50-136); Anion Gap 6 mmol/L (6-16); Aspartate Aminotrans (AST/SGOT 15 U/L (12-37); Bilirubin, Total 0.3 mg/dL (0.1-1.0); Blood Urea Nitrogen 16 mg/dL (8-24); Bun/Creatinine Ratio 16.1 (12.0-20.0); CO2, Blood 25 mmol/L (21-32); Calcium, Blood 9.6 mg/dL (8.5-10.1); Chloride, Blood 109 mmol/L (98-108); Glomerular Filtration Rate 54 (60-); Glucose, Blood 94 mg/dL (70-99); Potassium, Blood 3.8 mmol/L (3.5-5.5); Sodium, Blood 140 mmol/L (136-145); Total Protein, Blood 7.7 g/dL (6.4-8.2); Troponin I <0.015 ng/mL (0.000-0.040)
[2021-07-01 13:07] LABS: SARS-Cov-2 (COVID-19) PCR, MMC NEGATIVE (NEGATIVE)
[2021-07-01 13:45] LABS: Influenza A Negative (NEGATIVE); Influenza B Negative (NEGATIVE)
[2021-07-01] MEDS ORDERED: ACET500 PO (14:41)
[2021-07-01] MEDS ORDERED: IBUP400 PO (14:41)
[2021-07-01] MEDS ORDERED: ONDA4ODT MM (14:41)
== END 2021-07-01 14:56 | disposition home or self-care (01) ==
LOC: ER 11:08
PROVIDERS: Physician Assistant; Student in an Organized Health Care Education/Training Program
DX: R51.9 Headache, unspecified (principal); R11.0 Nausea; B34.9 Viral infection, unspecified; I10 Essential (primary) hypertension; R07.89 Other chest pain; J44.9 Chronic obstructive pulmonary disease, unspecified; I25.2 Old myocardial infarction; Z20.822 Contact with and (suspected) exposure to COVID-19; Z85.528 Personal history of other malignant neoplasm of kidney; Z90.5 Acquired absence of kidney; Z91.040 Latex allergy status; Z88.5 Allergy status to narcotic agent; Z88.8 Allergy status to other drugs, medicaments and biological substances; Z88.1 Allergy status to other antibiotic agents; Z79.82 Long term (current) use of aspirin; Z79.899 Other long term (current) drug therapy; Z87.891 Personal history of nicotine dependence; Z95.5 Presence of coronary angioplasty implant and graft
CPT/HCPCS: 36415; 71046; 80053; 83690; 83880; 84484; 85025; 87804; 93005; 93010; 96374; 96375; 99284-25; J1885; J2765; J7030; U0004

== ENCOUNTER 2023-07-19 13:08 | Emergency (ER) | payer MEDICARE ==
[~2023-07-19] VITALS: Ht 165.1 cm; Wt 68.5 kg
[~2023-07-19 13:08] MED LIST changes: +ACET500 PO; +ONDA4ODT MM
[2023-07-19] MEDS ORDERED: VITAMIN B-1250 MCG (13:35)
[2023-07-19 15:09] LABS: Bun/Creatinine Ratio 19.1 (12.0-20.0); Calcium, Blood 9.6 mg/dL (8.5-10.1); Creatinine, Blood 1.1 mg/dL (0.40-1.00); Potassium, Blood 4.3 mmol/L (3.5-5.5)
[2023-07-19 15:10] LABS: BASOPHILS ABSOLUTE AUTO 0.15 K/mm3 (0.00-0.23); BASOPHILS PERCENT AUTO 1 % (0-2); EOSINOPHILS ABSOLUTE AUTO 0.53 K/mm3 (0.00-0.68); EOSINOPHILS PERCENT AUTO 4 % (0-6); Hematocrit 39.5 % (33.0-51.0); Hemoglobin 13.2 g/dL (11.5-16.0); IMMATURE GRAN ABSOLUTE AUTO 0.18 K/mm3 (0.00-0.10); IMMATURE GRAN PERCENT AUTO 1 % (0-1); LYMPHOCYTES ABSOLUTE AUTO 2.03 K/mm3 (0.84-5.20); LYMPHOCYTES PERCENT AUTO 14 % (21-46); MONOCYTES PERCENT AUTO 8 % (4-13); Mean Corpuscular HGB 29.2 pg (26.0-34.0); Mean Corpuscular HGB Conc 33.4 g/dL (31.5-36.5); Mean Corpuscular Volume 87 fL (80-100); NEUTROPHILS PERCENT AUTO 72 % (41-73); RDW Coefficient Variation 13.1 % (11.7-14.2); RDW Standard Deviation 42.3 fL (35.1-46.3); Red Blood Cell Count 4.52 M/mm3 (3.80-5.20); White Blood Cell Count 14.39 K/mm3 (4.00-11.30)
[2023-07-19 15:30] LABS: International Normalized Ratio 0.99; Prothrombin Time Results 10.4 Sec (9.7-11.5)
[2023-07-19 15:38] LABS: BASOPHILS ABSOLUTE MAN 0.14 K/mm3 (0.00-0.23); BASOPHILS PERCENT MAN 1 % (0-2); EOSINOPHILS ABSOLUTE MAN 0.71 K/mm3 (0.00-0.68); EOSINOPHILS PERCENT MAN 5 % (0-6); LYMPHOCYTES ABSOLUTE MAN 2.87 K/mm3 (0.84-5.20); LYMPHOCYTES PERCENT MAN 20 % (21-46); MONOCYTES ABSOLUTE MAN 1.58 K/mm3 (0.16-1.47); MONOCYTES PERCENT MAN 11 % (4-13); MYELOCYTE ABSOLUTE MAN 0.43 K/mm3 (0.00-0.00); MYELOCYTE PERCENT MAN 3 % (0-0); Mean Platelet Volume 9.9 fL (9.1-12.4); NEUTROPHILS ABSOLUTE MAN 8.63 K/mm3 (1.96-9.15); Platelet Count 221 K/mm3 (150-400); SEG NEUTROPHILS PERCENT MAN 60 % (41-73); TOTAL CELLS COUNTED 100
[2023-07-19 16:30] VITALS: BP 152/65
== END 2023-07-19 19:25 | disposition short-term general hospital (02) ==
LOC: ER 13:08
PROVIDERS: Student in an Organized Health Care Education/Training Program
DX: S82.142A Displaced bicondylar fracture of left tibia, initial encounter for closed fracture (principal); S82.832A Other fracture of upper and lower end of left fibula, initial encounter for closed fracture; W06.XXXA Fall from bed, initial encounter; Z88.8 Allergy status to other drugs, medicaments and biological substances; Z91.040 Latex allergy status; Z88.5 Allergy status to narcotic agent; Z88.1 Allergy status to other antibiotic agents; Z79.899 Other long term (current) drug therapy; Z79.82 Long term (current) use of aspirin; I25.2 Old myocardial infarction; D64.9 Anemia, unspecified; I25.10 Atherosclerotic heart disease of native coronary artery without angina pectoris; J44.9 Chronic obstructive pulmonary disease, unspecified; I10 Essential (primary) hypertension; M19.90 Unspecified osteoarthritis, unspecified site
CPT/HCPCS: 29505; 73560-LT; 73590; 73700; 80048; 85025; 85610; 85730; 96374-59; 96375-59; 96376-59; 99285-25; J1170; J1885; J2704; J7030

== ENCOUNTER 2023-08-23 19:14 | Emergency (ER) | payer MEDICARE ==
[~2023-08-23] VITALS: Ht 165.1 cm; Wt 73.0 kg
[~2023-08-23 19:14] MED LIST changes: +VITAMIN B-1250 MCG
[2023-08-23] MEDS ORDERED: ATOR40TA PO (19:30)
[2023-08-23] MEDS ORDERED: Prinivil10 MG PO (19:31)
[2023-08-23 19:39] LABS: BASOPHILS ABSOLUTE AUTO 0.07 K/mm3 (0.00-0.23); BASOPHILS PERCENT AUTO 1 % (0-2); EOSINOPHILS ABSOLUTE AUTO 0.27 K/mm3 (0.00-0.68); EOSINOPHILS PERCENT AUTO 3 % (0-6); Hematocrit 33.4 % (33.0-51.0); Hemoglobin 10.8 g/dL (11.5-16.0); IMMATURE GRAN ABSOLUTE AUTO 0.14 K/mm3 (0.00-0.10); IMMATURE GRAN PERCENT AUTO 1 % (0-1); LYMPHOCYTES ABSOLUTE AUTO 1.45 K/mm3 (0.84-5.20); LYMPHOCYTES PERCENT AUTO 14 % (21-46); MONOCYTES ABSOLUTE AUTO 0.62 K/mm3 (0.16-1.47); MONOCYTES PERCENT AUTO 6 % (4-13); Mean Corpuscular HGB 28.8 pg (26.0-34.0); Mean Corpuscular HGB Conc 32.3 g/dL (31.5-36.5); Mean Corpuscular Volume 89 fL (80-100); Mean Platelet Volume 10.3 fL (9.1-12.4); NEUTROPHILS ABSOLUTE AUTO 8.16 K/mm3 (1.96-9.15); NEUTROPHILS PERCENT AUTO 76 % (41-73); Platelet Count 250 K/mm3 (150-400); RDW Coefficient Variation 13.1 % (11.7-14.2); RDW Standard Deviation 42.5 fL (35.1-46.3); Red Blood Cell Count 3.75 M/mm3 (3.80-5.20); White Blood Cell Count 10.71 K/mm3 (4.00-11.30)
[2023-08-23 19:51] LABS: Source, Urine Voided
[2023-08-23 19:54] VITALS: BP 111/90
[2023-08-23 19:57] LABS: Bilirubin, Urine Neg (Neg); Blood, Urine Neg (Neg); Glucose Qualitative, Urine Neg (Neg); Ketones, Urine Neg (Neg); Leukocyte Esterase, Urine 1+ (Neg); Nitrite, Urine Neg (Neg); Protein, Urine 1+ (Neg); Urobilinogen, Urine NORM (Normal)
[2023-08-23 20:01] LABS: Albumin, Blood 2.8 g/dL (3.4-5.0); Albumin/Globulin Ratio 0.7 (0.8-1.8); Bilirubin, Total 0.3 mg/dL (0.1-1.0); Bun/Creatinine Ratio 25.4 (12.0-20.0); Calcium, Blood 8.9 mg/dL (8.5-10.1); Creatinine, Blood 1.14 mg/dL (0.40-1.00); Globulin, Blood 3.9 g/dL (2.2-4.0); Potassium, Blood 4.5 mmol/L (3.5-5.5); Total Protein, Blood 6.7 g/dL (6.4-8.2)
[2023-08-23 20:08] LABS: Amorphous Light (0-Heavy); Appearance, Urine Clear (Clear); Bacteria Few /hpf; Color, Urine Yellow (P-Yellow); Red Blood Cells, Urine Not Seen /hpf (0-2); Squamous Epithelial Cells Few /hpf (Few)
== END 2023-08-23 21:20 ==
LOC: ER 19:14
PROVIDERS: Emergency Medicine
DX: I95.9 Hypotension, unspecified (principal); I25.2 Old myocardial infarction; I25.10 Atherosclerotic heart disease of native coronary artery without angina pectoris; J44.9 Chronic obstructive pulmonary disease, unspecified; I10 Essential (primary) hypertension; Z88.5 Allergy status to narcotic agent; Z91.040 Latex allergy status; Z88.8 Allergy status to other drugs, medicaments and biological substances; Z79.82 Long term (current) use of aspirin; Z79.899 Other long term (current) drug therapy; Z95.5 Presence of coronary angioplasty implant and graft; Z87.891 Personal history of nicotine dependence
CPT/HCPCS: 71045; 80053; 81001; 85025; 93005; 93010; 99284-25

== ENCOUNTER 2023-09-12 14:42 | Emergency (ER) | payer MEDICARE ==
[~2023-09-12] VITALS: Ht 165.1 cm; Wt 69.4 kg
[~2023-09-12 14:42] MED LIST changes: +Prinivil10 MG PO
[2023-09-12 16:08] LABS: BASOPHILS PERCENT AUTO 1 % (0-2); EOSINOPHILS PERCENT AUTO 6 % (0-6); Hematocrit 34.1 % (33.0-51.0); IMMATURE GRAN ABSOLUTE AUTO 0.03 K/mm3 (0.00-0.10); IMMATURE GRAN PERCENT AUTO 0 % (0-1); LYMPHOCYTES ABSOLUTE AUTO 1.64 K/mm3 (0.84-5.20); LYMPHOCYTES PERCENT AUTO 23 % (21-46); MONOCYTES ABSOLUTE AUTO 0.85 K/mm3 (0.16-1.47); MONOCYTES PERCENT AUTO 12 % (4-13); Mean Corpuscular HGB 28.9 pg (26.0-34.0); Mean Corpuscular HGB Conc 32.3 g/dL (31.5-36.5); Mean Corpuscular Volume 90 fL (80-100); Mean Platelet Volume 9.6 fL (9.1-12.4); NEUTROPHILS ABSOLUTE AUTO 3.98 K/mm3 (1.96-9.15); NEUTROPHILS PERCENT AUTO 57 % (41-73); Platelet Count 290 K/mm3 (150-400); RDW Coefficient Variation 13.8 % (11.7-14.2); RDW Standard Deviation 45.3 fL (35.1-46.3)
[2023-09-12 16:22] LABS: Albumin/Globulin Ratio 0.8 (0.8-1.8); Bilirubin, Total 0.2 mg/dL (0.1-1.0); Bun/Creatinine Ratio 13.6 (12.0-20.0); Calcium, Blood 9.6 mg/dL (8.5-10.1); Creatinine, Blood 0.88 mg/dL (0.40-1.00); Globulin, Blood 3.8 g/dL (2.2-4.0); Potassium, Blood 4.4 mmol/L (3.5-5.5); Total Protein, Blood 6.8 g/dL (6.4-8.2)
[2023-09-12] MEDS ORDERED: AMOCLA875 PO (16:48)
[2023-09-12 17:00] VITALS: BP 159/74
== END 2023-09-12 17:05 | disposition home or self-care (01) ==
LOC: ER 14:42
PROVIDERS: Physician Assistant
DX: T81.41XA Infection following a procedure, superficial incisional surgical site, initial encounter (principal); T81.31XA Disruption of external operation (surgical) wound, not elsewhere classified, initial encounter; Z88.5 Allergy status to narcotic agent; Z91.040 Latex allergy status; Z88.1 Allergy status to other antibiotic agents; Z79.899 Other long term (current) drug therapy; Z79.82 Long term (current) use of aspirin; M19.90 Unspecified osteoarthritis, unspecified site; I25.2 Old myocardial infarction; D64.9 Anemia, unspecified; I25.10 Atherosclerotic heart disease of native coronary artery without angina pectoris; J44.9 Chronic obstructive pulmonary disease, unspecified; I10 Essential (primary) hypertension; Z87.891 Personal history of nicotine dependence
CPT/HCPCS: 73560-LT; 80053; 85025; 99283-25; A9270

== ENCOUNTER 2023-09-16 10:40 | Emergency (ER) | payer MEDICARE ==
[~2023-09-16] VITALS: Ht 165.1 cm; Wt 69.4 kg
[~2023-09-16 10:40] MED LIST changes: +AMOCLA875 PO
[2023-09-16 11:33] LABS: BASOPHILS ABSOLUTE AUTO 0.09 K/mm3 (0.00-0.23); BASOPHILS PERCENT AUTO 1 % (0-2); EOSINOPHILS PERCENT AUTO 2 % (0-6); Hematocrit 35.3 % (33.0-51.0); Hemoglobin 11.7 g/dL (11.5-16.0); IMMATURE GRAN ABSOLUTE AUTO 0.03 K/mm3 (0.00-0.10); IMMATURE GRAN PERCENT AUTO 0 % (0-1); LYMPHOCYTES ABSOLUTE AUTO 1.28 K/mm3 (0.84-5.20); LYMPHOCYTES PERCENT AUTO 15 % (21-46); MONOCYTES PERCENT AUTO 9 % (4-13); Mean Corpuscular HGB 29.2 pg (26.0-34.0); Mean Corpuscular HGB Conc 33.1 g/dL (31.5-36.5); Mean Corpuscular Volume 88 fL (80-100); Mean Platelet Volume 9.6 fL (9.1-12.4); NEUTROPHILS ABSOLUTE AUTO 6.43 K/mm3 (1.96-9.15); NEUTROPHILS PERCENT AUTO 73 % (41-73); Platelet Count 328 K/mm3 (150-400); RDW Coefficient Variation 13.2 % (11.7-14.2); RDW Standard Deviation 43.1 fL (35.1-46.3); Red Blood Cell Count 4.01 M/mm3 (3.80-5.20); White Blood Cell Count 8.83 K/mm3 (4.00-11.30)
[2023-09-16 12:10] LABS: Albumin, Blood 3.2 g/dL (3.4-5.0); Albumin/Globulin Ratio 0.8 (0.8-1.8); Bilirubin, Total 0.3 mg/dL (0.1-1.0); Bun/Creatinine Ratio 13.8 (12.0-20.0); Calcium, Blood 9.5 mg/dL (8.5-10.1); Creatinine, Blood 0.87 mg/dL (0.40-1.00); Globulin, Blood 4.2 g/dL (2.2-4.0); Total Protein, Blood 7.4 g/dL (6.4-8.2)
[2023-09-16 15:45] VITALS: BP 150/59
[2023-09-16] MEDS ORDERED: SULTRIDS PO (17:05)
== END 2023-09-16 17:44 | disposition home or self-care (01) ==
LOC: ER 10:40
PROVIDERS: Physician Assistant
DX: T81.49XA Infection following a procedure, other surgical site, initial encounter (principal); L03.116 Cellulitis of left lower limb; S82.192G Other fracture of upper end of left tibia, subsequent encounter for closed fracture with delayed healing; S82.832G Other fracture of upper and lower end of left fibula, subsequent encounter for closed fracture with delayed healing; I25.2 Old myocardial infarction; I10 Essential (primary) hypertension; I25.10 Atherosclerotic heart disease of native coronary artery without angina pectoris; Z88.5 Allergy status to narcotic agent; J44.9 Chronic obstructive pulmonary disease, unspecified; Z88.1 Allergy status to other antibiotic agents; Z88.8 Allergy status to other drugs, medicaments and biological substances; Z91.040 Latex allergy status; Z91.09 Other allergy status, other than to drugs and biological substances; Z79.82 Long term (current) use of aspirin; Z79.899 Other long term (current) drug therapy; Z87.891 Personal history of nicotine dependence; X58.XXXD Exposure to other specified factors, subsequent encounter
CPT/HCPCS: 73701; 80053; 85025; 96365-59; 96366; 96375-59; 99284-25; J1170; J3370; J7050; Q9967

== ENCOUNTER 2023-09-23 17:04 | Observation (INO) | payer MEDICARE ==
[~2023-09-23] VITALS: Ht 165.1 cm; Wt 68.5 kg
[~2023-09-23 17:04] MED LIST changes: +SULTRIDS PO
[2023-09-23 18:16] LABS: BASOPHILS ABSOLUTE AUTO 0.09 K/mm3 (0.00-0.23); BASOPHILS PERCENT AUTO 1 % (0-2); EOSINOPHILS ABSOLUTE AUTO 0.34 K/mm3 (0.00-0.68); EOSINOPHILS PERCENT AUTO 4 % (0-6); Hematocrit 35.5 % (33.0-51.0); Hemoglobin 11.7 g/dL (11.5-16.0); IMMATURE GRAN ABSOLUTE AUTO 0.11 K/mm3 (0.00-0.10); IMMATURE GRAN PERCENT AUTO 1 % (0-1); LYMPHOCYTES ABSOLUTE AUTO 1.59 K/mm3 (0.84-5.20); LYMPHOCYTES PERCENT AUTO 17 % (21-46); MONOCYTES ABSOLUTE AUTO 0.77 K/mm3 (0.16-1.47); MONOCYTES PERCENT AUTO 8 % (4-13); Mean Corpuscular HGB 29.3 pg (26.0-34.0); Mean Corpuscular Volume 89 fL (80-100); Mean Platelet Volume 9.6 fL (9.1-12.4); NEUTROPHILS PERCENT AUTO 68 % (41-73); Platelet Count 308 K/mm3 (150-400); RDW Standard Deviation 45.5 fL (35.1-46.3); Red Blood Cell Count 3.99 M/mm3 (3.80-5.20)
[2023-09-23 18:38] LABS: Albumin, Blood 3.3 g/dL (3.4-5.0); Albumin/Globulin Ratio 0.8 (0.8-1.8); Bilirubin, Total 0.2 mg/dL (0.1-1.0); Bun/Creatinine Ratio 12.8 (12.0-20.0); Calcium, Blood 9.4 mg/dL (8.5-10.1); Creatinine, Blood 1.17 mg/dL (0.40-1.00); Globulin, Blood 4.2 g/dL (2.2-4.0); Total Protein, Blood 7.5 g/dL (6.4-8.2)
--- NOTE | 2023-09-23 23:09 | NUR ---
ADMIT NOTE PT BROUGHT TO UNIT BY WHEELCHAIR. AMBULATED WITH 1P ASSIST TO HOSPITAL BED. ORIENTED TO ROOM AND CALL LIGHT. DR STEWART TO SEE PT AT BEDSIDE. RECEIVED REPROT FROM YONATAN VILLEGAS RN. CALL LIGHT WITHIN REACH WITH BED IN LOWEST POSITION. WILL CONTINUE TO MONITOR.
[2023-09-23 23:15] VITALS: BP 141/68
[2023-09-23] MEDS ORDERED: HYDROCODONE-AC1 EAC7 PO (23:24)
[2023-09-23] MEDS ORDERED: FERSU300 PO (23:25)
[2023-09-24 03:58] VITALS: BP 140/63
[2023-09-24 05:11] LABS: BASOPHILS ABSOLUTE AUTO 0.08 K/mm3 (0.00-0.23); BASOPHILS PERCENT AUTO 1 % (0-2); EOSINOPHILS ABSOLUTE AUTO 0.38 K/mm3 (0.00-0.68); EOSINOPHILS PERCENT AUTO 5 % (0-6); Hematocrit 33.2 % (33.0-51.0); Hemoglobin 10.7 g/dL (11.5-16.0); IMMATURE GRAN ABSOLUTE AUTO 0.05 K/mm3 (0.00-0.10); IMMATURE GRAN PERCENT AUTO 1 % (0-1); LYMPHOCYTES ABSOLUTE AUTO 1.32 K/mm3 (0.84-5.20); LYMPHOCYTES PERCENT AUTO 17 % (21-46); MONOCYTES ABSOLUTE AUTO 0.86 K/mm3 (0.16-1.47); MONOCYTES PERCENT AUTO 11 % (4-13); Mean Corpuscular HGB 28.8 pg (26.0-34.0); Mean Corpuscular HGB Conc 32.2 g/dL (31.5-36.5); Mean Corpuscular Volume 89 fL (80-100); Mean Platelet Volume 9.9 fL (9.1-12.4); NEUTROPHILS ABSOLUTE AUTO 5.16 K/mm3 (1.96-9.15); NEUTROPHILS PERCENT AUTO 66 % (41-73); Platelet Count 271 K/mm3 (150-400); RDW Coefficient Variation 13.9 % (11.7-14.2); RDW Standard Deviation 45.3 fL (35.1-46.3); Red Blood Cell Count 3.72 M/mm3 (3.80-5.20); White Blood Cell Count 7.85 K/mm3 (4.00-11.30)
--- NOTE | 2023-09-24 05:50 | NUR ---
SHIFT SUMMARY PT A&O X4, AMBULATES 1 P ASSIST TO BSC. TELEMETRY: SR @75. DENIES ANY CHEST PAIN OR PRESSURE. PT LLE WRAPPED BY PROVIDER IN ER DR FRANKLIN. DR DAY TO BEDSIDE TO SPEAK WITH PT. PT KEPT NPO AWAITING ORTHOPEDIC CONSULT. TRIED TO CALL AND RECEIVED NO ANSER/FAX LINE. NS @75 INFUISING. MEDICATED FOR LLE PAIN PER EMAR. BED KEPT IN LOWEST POSITION WITH CALL LIGHT WITHIN REACH. WILL CONTINUE TO MONITOR.
[2023-09-24 06:00] LABS: Albumin/Globulin Ratio 0.8 (0.8-1.8); Bilirubin, Total 0.3 mg/dL (0.1-1.0); Bun/Creatinine Ratio 13.4 (12.0-20.0); Calcium, Blood 9.1 mg/dL (8.5-10.1); Creatinine, Blood 1.12 mg/dL (0.40-1.00); Globulin, Blood 3.7 g/dL (2.2-4.0); Potassium, Blood 4.4 mmol/L (3.5-5.5); Total Protein, Blood 6.7 g/dL (6.4-8.2)
[2023-09-24 07:26] VITALS: BP 154/69
--- NOTE | 2023-09-24 19:09 | NUR ---
SHIFT SUMMARY: PT A&O X4. PLEASANT AND COOPERATIVE WITH CARE. WOUND ON LLE CHANGED THIS SHIFT. OUTLINED WOUND THIS AM PRIOR TO DRESSING CHANGE. PT RECEIVING IV ABX W/O COMPLICATIONS. DR. RIBEIRO ARRIVED FOR CONSULT THIS AFTERNOON. NO SURGERY PLANNED. RECOMMENDING CONTINUED IV ABX AND FOLLOW-UP WITH WOUND CARE AFTER D/C. PT HAS TELEHEALTH APT TOMORROW WITH [facility]. HOME NORCO ADDED TO EMAR AND RECEIVED THIS EVENING. PT HAVING COUGH/SORE THROAT. CEPACOL ORDERED. CALL LIGHT IN REACH. REPORT GIVEN TO ONCOMING RN.
[2023-09-24 19:19] VITALS: BP 148/66
--- NOTE | 2023-09-24 21:31 | NUR ---
2120 SPOKE WITH PTS DAUGHTER ROHINI ON THE PHONE. DAUGHTER IS WORRIED THAT PT WAS NOT ACTING LIKE HERSELF AND WAS CONFUSED AND HAVING HALLUCINATIONS TODAY. THIS RN DOES NOT NOTE ANY HALLUCINATIONS AND PT WAS CONFUSED TO WHAT TIME OF DAY IT WAS, BUT NO OTHER CONFUSION NOTED. WILL CONTINUE TO MONITOR.
--- NOTE | 2023-09-25 04:19 | NUR ---
SHIFT SUMMARY PT PLEASANT AND COOPERATIVE. PT CONTINUES TO RECEIVE IV ANTIBIOTICS. PLAN IS FOR 1-2 MORE DAYS AND THEN DC HOME AND FOLLOW UP WITH WOUND CLINIC. PT'S DAUGHTER STATED THAT PT IS NOT ACTING HERSELF AND APPEARED TO BE CONFUSED MUCH OF THE DAY. PT'S DAUGHTER STATED THAT PT WAS HAVING VISUAL HALLUCINATIONS WELL MUCH OF YESTERDAY AFTERNOON. THIS RN HAS NOT HEARD OR SEEN ANY THING TO INDICATE THAT THE PT IS HAVING HALLUCINATIONS. PT MAY BE MILDLY CONFUSED, SHE GOT THE TIME OF DAY WRONG, THINKING IT WAS MORNING INSTEAD OF NIGHT, BUT PT SEEMS TO BE MOSTLY LUCID. PT HAS CALL LIGHT WITHIN REACH AND HER BED IS IN LOW POSITION.
[2023-09-25 04:32] VITALS: BP 183/74
[2023-09-25 06:49] VITALS: BP 161/73
[2023-09-25 07:53] VITALS: BP 142/79
[2023-09-25] MEDS ORDERED: VISBIOME 112.51 EACH PO (12:56)
[2023-09-25] MEDS ORDERED: CEPH500 PO (12:57)
--- NOTE | 2023-09-25 13:03 | NUR ---
DRESSING CHANGE COMPLETED, WOUND CLEANED FRESH DRESSING IN PLACE. PLAN IS TO DISCHARGE THE PT HOME TODAY.
--- NOTE | 2023-09-25 13:39 | NUR ---
DISCHARGE NOTE- PT WAS GIVEN VERBAL AND WRITTEN DISCHARGE INSTRUCTIONS AND ACKNOWLEDGED UNDERSTANDING OF THEM. DRESSING REPLACED ON THE LLE, TELE AND IV DC'D AT THE TIME OF DISCHARGE. PT WAS ESCORTED OUT VIA WC BY THE CONVENTION SERVICES MANAGER NO S&S OF DISTRESS NOTED AT THE TIME OF DISCHARGE.
== END 2023-09-25 13:30 | disposition home or self-care (01) ==
LOC: ER 17:04 → MEDS 17:05 → ENPENDDIS 09-25 12:06 → MEDS 09-25 13:30
PROVIDERS: Physician Assistant; ADMIT Internal Medicine
DX: T81.40XA Infection following a procedure, unspecified, initial encounter (principal); L03.116 Cellulitis of left lower limb; D63.1 Anemia in chronic kidney disease; N18.31 Chronic kidney disease, stage 3a; E87.1 Hypo-osmolality and hyponatremia; G47.33 Obstructive sleep apnea (adult) (pediatric); I12.9 Hypertensive chronic kidney disease with stage 1 through stage 4 chronic kidney disease, or unspecified chronic kidney disease; J44.9 Chronic obstructive pulmonary disease, unspecified; G89.29 Other chronic pain; M54.9 Dorsalgia, unspecified; Z79.82 Long term (current) use of aspirin; I25.10 Atherosclerotic heart disease of native coronary artery without angina pectoris; S82.142A Displaced bicondylar fracture of left tibia, initial encounter for closed fracture
CPT/HCPCS: 36415; 73560-LT; 80053; 83605; 83880; 85025; 87040; 94640; 94664; 94760; 96365; 96366; 96367; 96375; 96376; 99284-25; A9270; C9113; G0378; J0360; J0690; J3370; J7030; J7050

== ENCOUNTER 2023-10-25 21:38 | Inpatient (IN) | payer MEDICARE ==
[~2023-10-25] VITALS: Ht 165.1 cm; Wt 66.4 kg
[~2023-10-25 21:38] MED LIST changes: +HYDROCODONE-AC1 EAC7 PO; +VISBIOME 112.51 EACH PO
[2023-10-25 22:18] LABS: Hematocrit 33.4 % (33.0-51.0); Hemoglobin 11.1 g/dL (11.5-16.0); Mean Corpuscular HGB 29.1 pg (26.0-34.0); Mean Corpuscular HGB Conc 33.2 g/dL (31.5-36.5); Mean Corpuscular Volume 88 fL (80-100); Mean Platelet Volume 9.8 fL (9.1-12.4); Platelet Count 296 K/mm3 (150-400); RDW Coefficient Variation 13.5 % (11.7-14.2); RDW Standard Deviation 43.4 fL (35.1-46.3); Red Blood Cell Count 3.81 M/mm3 (3.80-5.20); White Blood Cell Count 25.62 K/mm3 (4.00-11.30)
[2023-10-25 22:28] LABS: Albumin/Globulin Ratio 0.8 (0.8-1.8); Bilirubin, Total 0.4 mg/dL (0.1-1.0); Bun/Creatinine Ratio 20.5 (12.0-20.0); Creatinine, Blood 0.78 mg/dL (0.40-1.00)
[2023-10-25 22:47] LABS: BAND PERCENT MAN 13 % (0-8); BASOPHILS PERCENT MAN 0 % (0-2); EOSINOPHILS PERCENT MAN 0 % (0-6); LYMPHOCYTES ABSOLUTE MAN 0.76 K/mm3 (0.84-5.20); LYMPHOCYTES PERCENT MAN 3 % (21-46); MONOCYTES ABSOLUTE MAN 1.28 K/mm3 (0.16-1.47); MONOCYTES PERCENT MAN 5 % (4-13); NEUTROPHILS ABSOLUTE MAN 23.57 K/mm3 (1.96-9.15); SEG NEUTROPHILS PERCENT MAN 79 % (41-73); TOTAL CELLS COUNTED 100
[2023-10-26] MEDS ORDERED: PRAMIPEXOLE PO (10:03)
[2023-10-26] MEDS ORDERED: Ventolin/Prove6.7 GM INH (10:04)
[2023-10-26 10:41] VITALS: BP 157/64
--- NOTE | 2023-10-26 10:48 | NUR ---
PT ARRIVED TO ROOM AT APPROXIMATELY 1030. PT IS ALERT AND ORIENTED. PAIN MANAAGED WHILE AT REST. FAMILY AT BEDSIDE FOR SUPPORT. LLE SWOLLEN AND RED, OPEN WOUND PRESENT TO LLE PROXIMAL TO THE KNEE. DR. DOE NOTIFIED OF PT ARRIVAL TO THE ROOM AND BORDERLINE LACTIC OF 2.0. FLUID ORDERS PLACED. FAMILY REQUESTED WET TO DRY DRESSING THEY HAVE BEEN DOING AT HOME. CALL LIGHT WITHIN REACH. FIRE SAFETY EDUCATION GIVEN.
--- NOTE | 2023-10-26 11:58 | NUR ---
WET TO DRY DRESSING PLACED PER HOME ROUTINE. PHOTOS IN CHART. REDNESS OUTLINED.
[2023-10-26 15:13] VITALS: BP 129/56
[2023-10-26 19:18] VITALS: BP 133/88
--- NOTE | 2023-10-26 19:53 | NUR ---
SHIFT SUMMARY PT ADMITTED TODAY, AWAITING TRANSFER TO [facility]. PT IS GETTING IV ABX. PAIN MANAGED WITH PO PAIN MEDICATION. PT TOLERATING PO. PT MOVING ALL EXTREMITIES. CAP REFIL AND PULSES WNL TO LLE. PT IS ON BEDREST. SHE IS USING A PUREWICK CATHETER TO URINATE. PT ALERT AND ORIENTED AT TIME OF BEDSIDE REPORT, SHE PARTICIPATED IN REPORT. PT REPORTED PAIN STARTING TO INCREASE, NOC RN REPORTED SHE WOULD BRING PAIN MEDICATION. CALL LIGHT WITHIN REACH.
[2023-10-26 23:55] VITALS: BP 133/88
--- NOTE | 2023-10-27 01:48 | NUR ---
COBRA TRANSFER TO [facility]. REPORT CALLED TO YUNIOR AT [facility] AT 0145. PT RESTING IN ROOM WITH EYES CLOSED AND CALL LIGHT IN REACH.
[2023-10-27 02:24] VITALS: BP 150/51
--- NOTE | 2023-10-27 03:06 | NUR ---
phone call from ambulance service reporting they are unable to transfer pt at scheduled time due to multiple other er transfers tonight. they reported they will transfer as soon as possible which may be 07-08 or later. i called daniel charge nurse at [facility] to ask if they are able to hold room for pt until ambulance is able to transfer.daniel stated this would be no problem and they will hold room for pt.supervisor tank house notified.
[2023-10-27 05:25] LABS: BASOPHILS ABSOLUTE AUTO 0.06 K/mm3 (0.00-0.23); BASOPHILS PERCENT AUTO 0 % (0-2); EOSINOPHILS ABSOLUTE AUTO 0.14 K/mm3 (0.00-0.68); EOSINOPHILS PERCENT AUTO 1 % (0-6); Hematocrit 31.3 % (33.0-51.0); IMMATURE GRAN ABSOLUTE AUTO 0.09 K/mm3 (0.00-0.10); IMMATURE GRAN PERCENT AUTO 1 % (0-1); LYMPHOCYTES ABSOLUTE AUTO 0.69 K/mm3 (0.84-5.20); LYMPHOCYTES PERCENT AUTO 5 % (21-46); MONOCYTES ABSOLUTE AUTO 1.16 K/mm3 (0.16-1.47); MONOCYTES PERCENT AUTO 8 % (4-13); Mean Corpuscular HGB 28.6 pg (26.0-34.0); Mean Corpuscular HGB Conc 31.9 g/dL (31.5-36.5); Mean Corpuscular Volume 89 fL (80-100); NEUTROPHILS ABSOLUTE AUTO 12.43 K/mm3 (1.96-9.15); NEUTROPHILS PERCENT AUTO 85 % (41-73); Platelet Count 226 K/mm3 (150-400); RDW Coefficient Variation 13.7 % (11.7-14.2); RDW Standard Deviation 44.8 fL (35.1-46.3); White Blood Cell Count 14.57 K/mm3 (4.00-11.30)
[2023-10-27 05:51] LABS: Albumin, Blood 2.2 g/dL (3.4-5.0); Albumin/Globulin Ratio 0.6 (0.8-1.8); Bilirubin, Total 0.4 mg/dL (0.1-1.0); Creatinine, Blood 0.77 mg/dL (0.40-1.00); Globulin, Blood 3.9 g/dL (2.2-4.0); Potassium, Blood 3.6 mmol/L (3.5-5.5); Total Protein, Blood 6.1 g/dL (6.4-8.2)
--- NOTE | 2023-10-27 06:15 | NUR ---
SHIFT SUMMARY NOC. PT A/O X4. REDNESS IN LLE IS REDUCED FROM START OF SHIFT. PT MEDICATED FOR PAIN WITH NORCO X2 WITH GOOD RELIEF. PT CAP REFILL AND PULSES INTACT. PT TO BE TRANSFERED TO [facility] FOR HIGHER LEVEL OF CARE. TRANSFER TIME ESTIMATED TO BE AT 0815 THIS AM. CHARGE NURSE SET UP COBRA TRANSFER AND REPORT WAS GIVEN TO NURSE AT [facility] (SEE PREVIOUS NOTE). PT RESTED WITH EYES CLOSED AND CALL LIGHT IN REACH.
[2023-10-27 07:05] VITALS: BP 138/78
[2023-10-27 09:29] VITALS: BP 133/88
--- NOTE | 2023-10-27 09:49 | NUR ---
PT LEFT WITH [facility] TRANSPORT TO [facility] AT APPROXIMATELY 0930. PT WAS GIVEN HER AM MEDS EXCEPT LOVENOX SINCE IT IS UNCLEAR WHEN PT WILL HAVE SURGERY. REPORT GIVEN TO ISAIAH PRIOR TO TRANSPORT. ISAIAH WAS NOTIEID OF DEPARTURE TIME, AM MEDICATIONS GIVEN AND SHE VERBALIZED SHE WOULD FOLLOW-UP REGARDING LOVENOX AFTER PT ARRIVED. PT RATED HER PAIN AT 7/10 AT TIME OF DEPARTURE, SHE WAS MEDICATED WITH NORCO TO MANAGE PAIN. IV PUMP AND ABX SENT WITH AMBULANCE CREW, THEY WERE EDUCATED TO SALINE LOCK PT WHEN ABX ARE COMPLETE.
== END 2023-10-27 09:40 | disposition home or self-care (01) | DRG 560 ==
LOC: ER 21:38 → SURS 10-26 08:01
PROVIDERS: Student in an Organized Health Care Education/Training Program; ADMIT Hospitalist
DX: T84.54XA Infection and inflammatory reaction due to internal left knee prosthesis, initial encounter (principal); L03.116 Cellulitis of left lower limb; I35.0 Nonrheumatic aortic (valve) stenosis; J44.9 Chronic obstructive pulmonary disease, unspecified; F17.210 Nicotine dependence, cigarettes, uncomplicated; M79.7 Fibromyalgia; I25.10 Atherosclerotic heart disease of native coronary artery without angina pectoris; G47.33 Obstructive sleep apnea (adult) (pediatric); K42.9 Umbilical hernia without obstruction or gangrene; M19.90 Unspecified osteoarthritis, unspecified site; B95.61 Methicillin susceptible Staphylococcus aureus infection as the cause of diseases classified elsewhere; Y83.8 Other surgical procedures as the cause of abnormal reaction of the patient, or of later complication, without mention of misadventure at the time of the procedure; Z88.1 Allergy status to other antibiotic agents; Z91.040 Latex allergy status; Z88.5 Allergy status to narcotic agent; Z88.8 Allergy status to other drugs, medicaments and biological substances; Z91.048 Other nonmedicinal substance allergy status; Z79.811 Long term (current) use of aromatase inhibitors; Z79.82 Long term (current) use of aspirin; Z79.899 Other long term (current) drug therapy; I25.2 Old myocardial infarction; Z87.19 Personal history of other diseases of the digestive system; Z85.528 Personal history of other malignant neoplasm of kidney; Z90.5 Acquired absence of kidney; Z90.49 Acquired absence of other specified parts of digestive tract; Z90.89 Acquired absence of other organs; Z95.5 Presence of coronary angioplasty implant and graft; Z98.890 Other specified postprocedural states; Z90.710 Acquired absence of both cervix and uterus; Z90.79 Acquired absence of other genital organ(s); Z90.722 Acquired absence of ovaries, bilateral
CPT/HCPCS: 36415; 71045; 73560-LT; 80053; 83605; 85025; 94640; 94664; 94760; 94762; 96365; 96366; 96368; 96375; 99285-25; A9270; J0692; J3010; J3370; J7030; J7050; J7120

== ENCOUNTER 2023-12-13 19:06 | Inpatient (IN) | payer OTHER ==
[~2023-12-13] VITALS: Ht 165.1 cm; Wt 68.6 kg
[~2023-12-13 19:06] MED LIST changes: +PRAMIPEXOLE PO; +Ventolin/Prove6.7 GM INH
[2023-12-13 20:25] LABS: BASOPHILS ABSOLUTE AUTO 0.09 K/mm3 (0.00-0.23); BASOPHILS PERCENT AUTO 1 % (0-2); EOSINOPHILS ABSOLUTE AUTO 0.18 K/mm3 (0.00-0.68); EOSINOPHILS PERCENT AUTO 1 % (0-6); Hematocrit 33.1 % (33.0-51.0); Hemoglobin 10.6 g/dL (11.5-16.0); IMMATURE GRAN ABSOLUTE AUTO 0.08 K/mm3 (0.00-0.10); IMMATURE GRAN PERCENT AUTO 1 % (0-1); LYMPHOCYTES ABSOLUTE AUTO 0.79 K/mm3 (0.84-5.20); LYMPHOCYTES PERCENT AUTO 5 % (21-46); MONOCYTES PERCENT AUTO 8 % (4-13); Mean Corpuscular HGB 27.7 pg (26.0-34.0); Mean Corpuscular Volume 86 fL (80-100); Mean Platelet Volume 9.4 fL (9.1-12.4); NEUTROPHILS ABSOLUTE AUTO 13.34 K/mm3 (1.96-9.15); NEUTROPHILS PERCENT AUTO 85 % (41-73); Platelet Count 327 K/mm3 (150-400); RDW Coefficient Variation 14.2 % (11.7-14.2); RDW Standard Deviation 45.1 fL (35.1-46.3); Red Blood Cell Count 3.83 M/mm3 (3.80-5.20); White Blood Cell Count 15.78 K/mm3 (4.00-11.30)
[2023-12-13 20:46] LABS: Albumin, Blood 3.6 g/dL (3.4-5.0); Albumin/Globulin Ratio 0.8 (0.8-1.8); Bilirubin, Total 0.3 mg/dL (0.1-1.0); Bun/Creatinine Ratio 18.7 (12.0-20.0); Calcium, Blood 10.2 mg/dL (8.5-10.1); Creatinine, Blood 0.91 mg/dL (0.40-1.00); Globulin, Blood 4.5 g/dL (2.2-4.0); Potassium, Blood 4.4 mmol/L (3.5-5.5); Total Protein, Blood 8.1 g/dL (6.4-8.2)
[2023-12-14] MEDS ORDERED: Vancomycin HCL 1,500 MG in NS 250 ML IV ONE (00:05)
[2023-12-14] MEDS ORDERED: Acetaminophen 325 MG TABLET PO PRN (01:15)
[2023-12-14] MEDS ORDERED: FLU VACC QS2023-24(6MOS UP)/PF 60 MCG/0.5 ML SYRINGE IM ONE (01:15)
[2023-12-14] MEDS ORDERED: HydrALAZINE HCl 20 MG / ML 1ML Vial IV PRN (02:55)
[2023-12-14 04:30] VITALS: BP 180/64
--- NOTE | 2023-12-14 05:18 | NUR ---
PT ARRIVED ON UNIT AT ~0430. AOX4, PLEASANT, COOPERATIVE WITH CARE. ADMITTED FOR LLE CELLULITIS. MED STATUS NO TELE. VITALS WNL OUTSIDE OF ELEVATED BP WHICH IS BEING MANAGED PER EMAR. PAIN REPORTED IN LLE, ADMINISTERED PRN TYLENOL. WILL INQUIRE ABOUT POSSIBLE ADDITIONAL PAIN MEDICATIONS FOR ADEQUATE MANAGEMENT. PT ON BEDREST AT THIS TIME DUE TO LIMITED MOBILITY, PUREWICK IN PLACE. ADMISSION PROCESS COMPLETED PER PROTOCOL. EDUCATED TELEPHONE INTERCEPTOR OPERATOR LIGHT USE, SMOKING POLICY, DENIES ANY SOURCES OF IGNITION/CIGARETTES ON PERSON OR BELONGINGS. PHOTOS IN CHART OF LLE. ADA DIET, ACHS. FULL CODE STATUS VERIFIED WITH PT UPON ARRIVAL. PT HAS CALLED APPROPRIATELY THUS FAR AND UNDERSTANDS INDICATION FOR BEDREST. BED TAMMI DIN LOWEST POSITION. CALL LIGHT LEFT WITHIN REACH. CONTINUING TO MONITOR.
[2023-12-14 06:37] VITALS: BP 148/55
[2023-12-14] MEDS ORDERED: Insulin Human Lispro 100 Units/ML 3ML Syringe SC SCH (07:30)
[2023-12-14] MEDS ORDERED: Docusate Sodium 100 MG Cap PO SCH (09:00)
[2023-12-14] MEDS ORDERED: Enoxaparin 40 MG/0.4 ML SYR SC SCH (09:00)
[2023-12-14] MEDS ORDERED: Lactobacil 2-S.Thermo-Bifido 1 1 Cap PO SCH (09:00)
[2023-12-14 09:46] VITALS: BP 149/91
[2023-12-14] MEDS ORDERED: Ondansetron 4 MG SoluTab MM PRN (10:10)
[2023-12-14] MEDS ORDERED: Ipratropium Bromide INH 0.02% 0.5 mg/2.5ML Vial INH SCH (10:25)
[2023-12-14] MEDS ORDERED: Albuterol HFA200 ACT/6.7 GM INH INH PRN (10:25)
[2023-12-14] MEDS ORDERED: Atorvastatin 40 MG Tab PO SCH (10:40)
[2023-12-14] MEDS ORDERED: Venlafaxine HCl 75 MG CapCR PO SCH (10:40)
[2023-12-14] MEDS ORDERED: Metoprolol Succinate 50 MG TABCR PO SCH (10:40)
[2023-12-14] MEDS ORDERED: Lisinopril 20 MG Tab PO SCH (10:40)
[2023-12-14] MEDS ORDERED: HYDROcodone 10-APAP 325 TAB PO SCH (14:00)
[2023-12-14 16:12] VITALS: BP 142/74
--- NOTE | 2023-12-14 18:30 | NUR ---
ASSUMED CARE OF PT AT 0700 THIS AM. NO ACUTE EVENTS. LLE US COMPLETED AND PER US TECH THE STUDY IS NEGATIVE. SEE DOCUMENTED VS AND ASSESSMENT. PT VISITED WITH FAMILY AND SEEMS TO BE IN GOOD SPIRITS. PT IS ABLE TO MAKE NEEDS KNOWN, USE CALL LIGHT APPROPRIATELY. BED LOCKED AND IN LOWEST POSITION. CALL LIGHT IN REACH. WILL CONTINUE TO MONITOR AND GIVE REPORT TO NOC SHIFT RN.
[2023-12-14 20:03] VITALS: BP 127/56
[2023-12-14] MEDS ORDERED: Vancomycin HCL 1,250 MG in NS 250 ML IV SCH (21:00)
[2023-12-14] MEDS ORDERED: Famotidine 20 MG Tab PO SCH (21:00)
[2023-12-14] MEDS ORDERED: Aspirin 81 MG Chew PO SCH (21:00)
[2023-12-14] MEDS ORDERED: Pramipexole DI-HCL 1 Mg Tab PO SCH (21:00)
[2023-12-14] MEDS ORDERED: Ferrous Sulfate 325 MG Tab PO SCH (21:00)
[2023-12-15 04:30] VITALS: BP 159/55
--- NOTE | 2023-12-15 05:10 | NUR ---
SHIFT SUMMARY. PT HAS BEEN DOING WELL THIS SHIFT. NO ACUTE CHANGES. AOX4, PLEASANT, COOPERATIVE WITH CARE. HAS BEEN ON BEDREST THROUGHOUT SHIFT. PUREWICK IN PLACE TO ACCOMADATE THIS AND IS FUNCTIONING WELL. PT CALLS APPROPRIATELY, ABLE TO MAKE NEEDS KNOWN. VITALS HAVE BEEN STABLE OUTSIDE OF ONE BORDERLINE HIGH BP WHICH FALLS BELOW THRESHOLD TO MANAGE VIA IV HYDRALAZINE. CONTINUING TO MONITOR. PAIN HAS MOSTLY BEEN ADEQUATELY MANAGED WITH SOME BREAKTHROUGH PAIN THIS MORNING. ADMINISTERED PRN TYLENOL AND WILL CONTINUE TO MONITOR. MED STATUS, NO TELE. BED LOCKED IN LOWEST POSITION. CALL LIGHT LEFT WITHIN REACH.
[2023-12-15 05:12] LABS: BASOPHILS ABSOLUTE AUTO 0.09 K/mm3 (0.00-0.23); BASOPHILS PERCENT AUTO 1 % (0-2); EOSINOPHILS ABSOLUTE AUTO 0.44 K/mm3 (0.00-0.68); EOSINOPHILS PERCENT AUTO 5 % (0-6); Hematocrit 31.7 % (33.0-51.0); IMMATURE GRAN ABSOLUTE AUTO 0.06 K/mm3 (0.00-0.10); IMMATURE GRAN PERCENT AUTO 1 % (0-1); LYMPHOCYTES ABSOLUTE AUTO 1.23 K/mm3 (0.84-5.20); LYMPHOCYTES PERCENT AUTO 13 % (21-46); MONOCYTES ABSOLUTE AUTO 1.13 K/mm3 (0.16-1.47); MONOCYTES PERCENT AUTO 12 % (4-13); Mean Corpuscular HGB 27.5 pg (26.0-34.0); Mean Corpuscular HGB Conc 31.5 g/dL (31.5-36.5); Mean Corpuscular Volume 87 fL (80-100); Mean Platelet Volume 9.9 fL (9.1-12.4); NEUTROPHILS PERCENT AUTO 68 % (41-73); Platelet Count 298 K/mm3 (150-400); RDW Coefficient Variation 14.3 % (11.7-14.2); RDW Standard Deviation 45.9 fL (35.1-46.3); Red Blood Cell Count 3.64 M/mm3 (3.80-5.20); White Blood Cell Count 9.35 K/mm3 (4.00-11.30)
[2023-12-15 07:50] VITALS: BP 144/73
[2023-12-15] MEDS ORDERED: Atorvastatin 40 MG Tab PO SCH (09:00)
[2023-12-15] MEDS ORDERED: Metoprolol Succinate 50 MG TABCR PO SCH (09:00)
[2023-12-15] MEDS ORDERED: Venlafaxine HCl 75 MG CapCR PO SCH (09:00)
[2023-12-15] MEDS ORDERED: Lisinopril 20 MG Tab PO SCH (09:00)
[2023-12-15 10:12] VITALS: BP 153/66
--- NOTE | 2023-12-15 10:27 | NUR ---
ARRIVAL FROM PCU PT BROUGHT OVER ON BED. SHE DENIES PAIN AT THIS TIME. REPORTS SOME NUMBNESS FROM LEFT CALF TO FOOT. L ANTERIOR MONTANO IS RED AND WARM TO TOUCH. HEALING SCAR ON MEDIAL SIDE OF REDNESS. PT WIGGLES TOES. PPX4. CAP REFILL <3. DENIES NEEDS AT THIS TIME. PUREWICK IS IN PLACE.
[2023-12-15] MEDS ORDERED: HYDROcodone 10-APAP 325 TAB PO PRN (14:45)
[2023-12-15 14:49] VITALS: BP 158/59
--- NOTE | 2023-12-15 18:16 | NUR ---
SHIFT SUMMARY NO ACUTE CHANGES SINCE ARRIVAL TO UNIT, PT PAIN MANAGED PER EMAR. PT AND FAMILY REPORTED THAT SHE HAS BEEN HAVING SMALL HALLUCINATIONS, SEEING THINGS IN HER HAND OR GRASPING FOR THINGS. PT STATES IT HAS BEEN INFREQUENT SINCE HER INITIAL SURGERY. PHYSICIAN AWARE, PT REPORTS IT IMPROVED QUICKLY TODAY. PT VOIDING, PUREWICK IN PLACE.
[2023-12-15 19:39] VITALS: BP 164/79
[2023-12-16 04:06] VITALS: BP 174/72
[2023-12-16 04:31] VITALS: BP 174/68
[2023-12-16 06:40] VITALS: BP 182/82
--- NOTE | 2023-12-16 06:45 | NUR ---
SHIFT SUMMARY PT IS A&O X3-4, NO PROBLEMS SLEEPING THROUGH THE NIGHT, HYDROLIZINE GIVEN THIS AM, PAIN WNL, LLE ELEVATED, WARM TO TOUCH, CIRC WNL, BEDREST AT THIS TIME, PUREWICK OVER NIGHT, NO OTHER CHANGES, RESTING QUIETLY THIS A, RESP UNLABORED, CALL LIGHT IN REACH
[2023-12-16] MEDS ORDERED: Ipratropium Bromide INH 0.02% 0.5 mg/2.5ML Vial INH SCH (07:00)
[2023-12-16 07:47] VITALS: BP 128/60
[2023-12-16 10:17] LABS: BASOPHILS ABSOLUTE AUTO 0.09 K/mm3 (0.00-0.23); BASOPHILS PERCENT AUTO 1 % (0-2); EOSINOPHILS PERCENT AUTO 7 % (0-6); Hematocrit 31.8 % (33.0-51.0); Hemoglobin 9.9 g/dL (11.5-16.0); IMMATURE GRAN ABSOLUTE AUTO 0.04 K/mm3 (0.00-0.10); IMMATURE GRAN PERCENT AUTO 1 % (0-1); LYMPHOCYTES ABSOLUTE AUTO 1.15 K/mm3 (0.84-5.20); LYMPHOCYTES PERCENT AUTO 16 % (21-46); MONOCYTES ABSOLUTE AUTO 0.97 K/mm3 (0.16-1.47); MONOCYTES PERCENT AUTO 14 % (4-13); Mean Corpuscular HGB 27.1 pg (26.0-34.0); Mean Corpuscular HGB Conc 31.1 g/dL (31.5-36.5); Mean Corpuscular Volume 87 fL (80-100); Mean Platelet Volume 10.1 fL (9.1-12.4); NEUTROPHILS ABSOLUTE AUTO 4.45 K/mm3 (1.96-9.15); NEUTROPHILS PERCENT AUTO 62 % (41-73); Platelet Count 298 K/mm3 (150-400); RDW Standard Deviation 44.7 fL (35.1-46.3); Red Blood Cell Count 3.65 M/mm3 (3.80-5.20)
--- NOTE | 2023-12-16 11:38 | NUR ---
DR GUNN AND DR EDWARDS IN TO SEE PT.
[2023-12-16 15:08] VITALS: BP 132/59
--- NOTE | 2023-12-16 17:32 | NUR ---
SUMMARY NO ACUTE CHANGES T/O SHIFT. PT WORKED WITH THERAPY AND AMBULATED IN [place]. NOW AMBULATING TO RESTROOM W/FWW AND 1 PERSON ASSIST. MEDICATED THIS AM FOR PAIN PER ORDERS. PT RESTING IN BED WITH LLE ELEVATED ON PILLOW. CALL LIGHT IN REACH.
[2023-12-16 20:01] VITALS: BP 152/63
[2023-12-16] MEDS ORDERED: NS 250 ML IV PRN (20:30)
[2023-12-17 02:19] VITALS: BP 152/69
--- NOTE | 2023-12-17 04:20 | NUR ---
SHIFT SUMMARY NO ACUTE CHANGES. PT RESTED WELL T/O NOC. 1 PAIN PILL FOR LLE PAIN PRN. ENCOURAGING ELEVATION. IV ABX PER ORDERS. PT REPORTS REDNESS AND SWELLING IMPROVING. 1 ASSIST WITH FWW TO BATHROOM. USES CALL LIGHT APPROPRIATELY.
[2023-12-17 07:03] VITALS: BP 154/63
--- NOTE | 2023-12-17 10:37 | NUR ---
DR GARCIA IN TO SEE PT.
--- NOTE | 2023-12-17 11:28 | NUR ---
Pt. is awak on bed when she welcomes my visit. Pt. is pleasant. Facilitated a life review and considered matters of violeta and belief. Pt. verbalized that she has supportive family in the area. Pt. displayed evidence of awareness, engagement, and a lot of grit as she anticipates rehab. Prayed with Pt. Pt. verbalized gratitude for the spiritual care visit.
[2023-12-17] MEDS ORDERED: DOCU100 PO (12:02)
[2023-12-17] MEDS ORDERED: LINE600 PO (12:03)
[2023-12-17 13:32] VITALS: BP 148/63
--- NOTE | 2023-12-17 13:46 | NUR ---
DISCHARGED PT'S DAUGHTER PICKED UP ANTIBIOTIC PRESCRIPTION FROM PHARMACY. DC'D IV, CATHETER INTACT. REVIEWED DC INSTRUCTIONS W/PT; VERBALIZED UNDERSTANDING. PT LEFT UNIT IN WC W/POSSESSIONS AND DC PAPERWORK IN HAND.
== END 2023-12-17 13:45 | disposition home or self-care (01) | DRG 603 ==
LOC: ER 19:06 → ERHOLD 12-14 01:10 → PCU 12-14 01:10 → SURS 12-14 01:10 → PCU 12-14 04:21 → SURS 12-15 10:26
PROVIDERS: Hospitalist; Internal Medicine; Student in an Organized Health Care Education/Training Program; ADMIT Internal Medicine
DX: L03.116 Cellulitis of left lower limb (principal); I35.0 Nonrheumatic aortic (valve) stenosis; J44.9 Chronic obstructive pulmonary disease, unspecified; I10 Essential (primary) hypertension; F17.210 Nicotine dependence, cigarettes, uncomplicated; M79.7 Fibromyalgia; M19.90 Unspecified osteoarthritis, unspecified site; M51.9 Unspecified thoracic, thoracolumbar and lumbosacral intervertebral disc disorder; I25.10 Atherosclerotic heart disease of native coronary artery without angina pectoris; G47.33 Obstructive sleep apnea (adult) (pediatric); E78.5 Hyperlipidemia, unspecified; D50.9 Iron deficiency anemia, unspecified; F32.A Depression, unspecified; F41.9 Anxiety disorder, unspecified; G25.81 Restless legs syndrome; I25.2 Old myocardial infarction; Z87.19 Personal history of other diseases of the digestive system; Z90.5 Acquired absence of kidney; Z85.528 Personal history of other malignant neoplasm of kidney; Z71.6 Tobacco abuse counseling
CPT/HCPCS: 36415; 73562-LT; 80053; 80202; 82947; 83605; 84145; 85025; 85651; 86140; 93971; 94640; 94664; 94760; 96365; 96366; 97110; 97161; 97165; 97535; 99285-25; A9270; J0360; J1650; J3370; J7050

== ENCOUNTER 2023-12-22 13:41 | Emergency (ER) | payer OTHER ==
[~2023-12-22] VITALS: Ht 165.1 cm; Wt 68.5 kg
[~2023-12-22 13:41] MED LIST changes: +DOCU100 PO; +LINE600 PO
[2023-12-22 14:06] VITALS: BP 106/75
[2023-12-22 14:34] LABS: BASOPHILS ABSOLUTE AUTO 0.07 K/mm3 (0.00-0.23); BASOPHILS PERCENT AUTO 1 % (0-2); EOSINOPHILS ABSOLUTE AUTO 0.39 K/mm3 (0.00-0.68); EOSINOPHILS PERCENT AUTO 4 % (0-6); Hematocrit 31.2 % (33.0-51.0); Hemoglobin 9.9 g/dL (11.5-16.0); IMMATURE GRAN ABSOLUTE AUTO 0.06 K/mm3 (0.00-0.10); IMMATURE GRAN PERCENT AUTO 1 % (0-1); LYMPHOCYTES ABSOLUTE AUTO 0.92 K/mm3 (0.84-5.20); LYMPHOCYTES PERCENT AUTO 10 % (21-46); MONOCYTES PERCENT AUTO 9 % (4-13); Mean Corpuscular HGB 27.6 pg (26.0-34.0); Mean Corpuscular HGB Conc 31.7 g/dL (31.5-36.5); Mean Corpuscular Volume 87 fL (80-100); Mean Platelet Volume 8.9 fL (9.1-12.4); NEUTROPHILS PERCENT AUTO 76 % (41-73); Platelet Count 372 K/mm3 (150-400); RDW Coefficient Variation 13.6 % (11.7-14.2); RDW Standard Deviation 43.5 fL (35.1-46.3); Red Blood Cell Count 3.59 M/mm3 (3.80-5.20); White Blood Cell Count 9.24 K/mm3 (4.00-11.30)
[2023-12-22 14:52] LABS: Albumin/Globulin Ratio 0.7 (0.8-1.8); Bilirubin, Total 0.2 mg/dL (0.1-1.0); Bun/Creatinine Ratio 22.4 (12.0-20.0); Calcium, Blood 9.5 mg/dL (8.5-10.1); Creatinine, Blood 0.98 mg/dL (0.40-1.00); Globulin, Blood 4.3 g/dL (2.2-4.0); Potassium, Blood 4.2 mmol/L (3.5-5.5); Total Protein, Blood 7.3 g/dL (6.4-8.2)
[2023-12-22] MEDS ORDERED: Acetaminophen 500 MG Tab PO ONE (18:05)
== END 2023-12-22 18:21 | disposition home or self-care (01) ==
LOC: ER 13:41
PROVIDERS: Student in an Organized Health Care Education/Training Program
DX: L03.116 Cellulitis of left lower limb (principal); Z87.891 Personal history of nicotine dependence; M19.90 Unspecified osteoarthritis, unspecified site; I25.2 Old myocardial infarction; I25.10 Atherosclerotic heart disease of native coronary artery without angina pectoris; J44.9 Chronic obstructive pulmonary disease, unspecified; I10 Essential (primary) hypertension; G47.33 Obstructive sleep apnea (adult) (pediatric); M79.7 Fibromyalgia; Z79.82 Long term (current) use of aspirin; Z79.899 Other long term (current) drug therapy; Z88.1 Allergy status to other antibiotic agents; Z88.5 Allergy status to narcotic agent; Z91.048 Other nonmedicinal substance allergy status; Z91.040 Latex allergy status
CPT/HCPCS: 73590; 80053; 85025; 99283-25

== ENCOUNTER → 2023-12-30 | Outpatient (CLI) | payer OTHER ==
[2023-12-30 19:01] LABS: Hematocrit 31.4 % (33.0-51.0); Hemoglobin 9.9 g/dL (11.5-16.0); Mean Corpuscular HGB 27.4 pg (26.0-34.0); Mean Corpuscular HGB Conc 31.5 g/dL (31.5-36.5); Mean Corpuscular Volume 87 fL (80-100); Mean Platelet Volume 9.1 fL (9.1-12.4); Platelet Count 322 K/mm3 (150-400); RDW Coefficient Variation 13.9 % (11.7-14.2); RDW Standard Deviation 43.2 fL (35.1-46.3); Red Blood Cell Count 3.61 M/mm3 (3.80-5.20); White Blood Cell Count 10.39 K/mm3 (4.00-11.30)
== END ==
LOC: LAB SHORT 17:43
PROVIDERS: Family Medicine
DX: M86.162 Other acute osteomyelitis, left tibia and fibula (principal)
CPT/HCPCS: 85027

== ENCOUNTER 2025-03-19 16:07 | Emergency (ER) | payer OTHER ==
[~2025-03-19] VITALS: Ht 154.9 cm; Wt 65.8 kg
[2025-03-19 16:12] VITALS: BP 164/66
[2025-03-19] MEDS ORDERED: LIDO700A20 TOP (18:09)
[2025-03-19] MEDS ORDERED: Lidocaine 4% 1 Patch TOP ONE (18:10)
[2025-04-01] MEDS ORDERED: ALBU90OI INH (09:56)
== END 2025-03-19 18:21 | disposition home or self-care (01) ==
LOC: ER 16:07
DX: M16.11 Unilateral primary osteoarthritis, right hip (principal); I25.2 Old myocardial infarction; Z87.891 Personal history of nicotine dependence; Z79.899 Other long term (current) drug therapy; Z79.82 Long term (current) use of aspirin; Z91.040 Latex allergy status; Z88.1 Allergy status to other antibiotic agents; Z88.5 Allergy status to narcotic agent; Z88.8 Allergy status to other drugs, medicaments and biological substances
CPT/HCPCS: 73502; 99283-25; A9270

== ENCOUNTER 2025-04-04 15:05 | Emergency (ER) | payer OTHER ==
[~2025-04-04] VITALS: Ht 162.6 cm; Wt 81.7 kg
[~2025-04-04 15:05] MED LIST changes: +ALBU90OI INH; +LIDO700A20 TOP
[2025-04-04 15:48] LABS: BASOPHILS ABSOLUTE AUTO 0.09 K/mm3 (0.00-0.23); BASOPHILS PERCENT AUTO 1 % (0-2); EOSINOPHILS ABSOLUTE AUTO 0.21 K/mm3 (0.00-0.68); EOSINOPHILS PERCENT AUTO 3 % (0-6); Hematocrit 30.4 % (33.0-51.0); Hemoglobin 9.5 g/dL (11.5-16.0); IMMATURE GRAN ABSOLUTE AUTO 0.06 K/mm3 (0.00-0.10); IMMATURE GRAN PERCENT AUTO 1 % (0-1); LYMPHOCYTES ABSOLUTE AUTO 1.46 K/mm3 (0.84-5.20); LYMPHOCYTES PERCENT AUTO 18 % (21-46); MONOCYTES ABSOLUTE AUTO 0.74 K/mm3 (0.16-1.47); MONOCYTES PERCENT AUTO 9 % (4-13); Mean Corpuscular HGB 27.9 pg (26.0-34.0); Mean Corpuscular HGB Conc 31.3 g/dL (31.5-36.5); Mean Corpuscular Volume 89 fL (80-100); Mean Platelet Volume 9.9 fL (9.1-12.4); NEUTROPHILS PERCENT AUTO 68 % (41-73); Platelet Count 358 K/mm3 (150-400); RDW Coefficient Variation 13.2 % (11.7-14.2); RDW Standard Deviation 43.4 fL (35.1-46.3); RETICULOCYTE ABSOLUTE 0.0958 M/mm3 (0.0200-0.1100); RETICULOCYTE COUNT PERCENT 2.81 % (0.50-2.50); Red Blood Cell Count 3.41 M/mm3 (3.80-5.20); White Blood Cell Count 8.06 K/mm3 (4.00-11.30)
[2025-04-04 16:24] LABS: Albumin, Blood 3.1 g/dL (3.4-5.0); Albumin/Globulin Ratio 0.9 (0.8-1.8); Bilirubin, Total 0.2 mg/dL (0.1-1.0); Calcium, Blood 9.3 mg/dL (8.5-10.1); Globulin, Blood 3.5 g/dL (2.2-4.0); Potassium, Blood 4.1 mmol/L (3.5-5.5); Total Protein, Blood 6.6 g/dL (6.4-8.2)
[2025-04-04 18:00] VITALS: BP 126/91
== END 2025-04-04 18:53 | disposition home or self-care (01) ==
LOC: ER 15:05
PROVIDERS: Student in an Organized Health Care Education/Training Program
DX: D64.9 Anemia, unspecified (principal); R55 Syncope and collapse; J44.9 Chronic obstructive pulmonary disease, unspecified; Z91.040 Latex allergy status; Z88.5 Allergy status to narcotic agent; Z88.8 Allergy status to other drugs, medicaments and biological substances; Z79.82 Long term (current) use of aspirin; Z79.899 Other long term (current) drug therapy; I10 Essential (primary) hypertension; I25.2 Old myocardial infarction; Z87.891 Personal history of nicotine dependence
CPT/HCPCS: 71045; 80053; 85025; 85045; 99284-25

== ENCOUNTER 2025-04-12 21:48 | Emergency (ER) | payer OTHER ==
[~2025-04-12] VITALS: Ht 165.1 cm; Wt 68.5 kg
[2025-04-12 22:15] LABS: BASOPHILS PERCENT AUTO 1 % (0-2); EOSINOPHILS PERCENT AUTO 3 % (0-6); Hemoglobin 9.7 g/dL (11.5-16.0); IMMATURE GRAN ABSOLUTE AUTO 0.06 K/mm3 (0.00-0.10); IMMATURE GRAN PERCENT AUTO 1 % (0-1); LYMPHOCYTES ABSOLUTE AUTO 1.72 K/mm3 (0.84-5.20); LYMPHOCYTES PERCENT AUTO 19 % (21-46); MONOCYTES ABSOLUTE AUTO 1.03 K/mm3 (0.16-1.47); MONOCYTES PERCENT AUTO 11 % (4-13); Mean Corpuscular HGB 27.8 pg (26.0-34.0); Mean Corpuscular HGB Conc 31.3 g/dL (31.5-36.5); Mean Corpuscular Volume 89 fL (80-100); Mean Platelet Volume 9.8 fL (9.1-12.4); NEUTROPHILS ABSOLUTE AUTO 5.85 K/mm3 (1.96-9.15); NEUTROPHILS PERCENT AUTO 65 % (41-73); Platelet Count 330 K/mm3 (150-400); RDW Coefficient Variation 13.4 % (11.7-14.2); RDW Standard Deviation 43.4 fL (35.1-46.3); Red Blood Cell Count 3.49 M/mm3 (3.80-5.20); White Blood Cell Count 9.06 K/mm3 (4.00-11.30)
[2025-04-12 22:30] LABS: Albumin, Blood 3.3 g/dL (3.4-5.0); Albumin/Globulin Ratio 0.9 (0.8-1.8); Bilirubin, Total 0.2 mg/dL (0.1-1.0); Bun/Creatinine Ratio 14.8 (12.0-20.0); Creatinine, Blood 1.22 mg/dL (0.40-1.00); Globulin, Blood 3.7 g/dL (2.2-4.0); Potassium, Blood 4.5 mmol/L (3.5-5.5)
[2025-04-13 02:49] VITALS: BP 106/52
== END 2025-04-13 04:13 | disposition home or self-care (01) ==
LOC: ER 21:48
PROVIDERS: Student in an Organized Health Care Education/Training Program
DX: D64.9 Anemia, unspecified (principal); R79.1 Abnormal coagulation profile; I48.91 Unspecified atrial fibrillation; I25.2 Old myocardial infarction; I25.10 Atherosclerotic heart disease of native coronary artery without angina pectoris; J44.9 Chronic obstructive pulmonary disease, unspecified; I10 Essential (primary) hypertension; Z88.8 Allergy status to other drugs, medicaments and biological substances; Z91.040 Latex allergy status; Z88.1 Allergy status to other antibiotic agents; Z88.5 Allergy status to narcotic agent; Z79.82 Long term (current) use of aspirin; Z79.899 Other long term (current) drug therapy; Z59.89 Other problems related to housing and economic circumstances
CPT/HCPCS: 71046; 71260; 80053; 83605; 83690; 84484; 85025; 85379; 86850; 86900; 86901; 93005; 93010; 99285-25; Q9967

== ENCOUNTER 2025-06-20 14:51 | Emergency (ER) | payer OTHER ==
[~2025-06-20] VITALS: Ht 167.6 cm; Wt 65.8 kg
[2025-06-20 15:24] LABS: BASOPHILS ABSOLUTE AUTO 0.08 K/mm3 (0.00-0.23); BASOPHILS PERCENT AUTO 1 % (0-2); EOSINOPHILS ABSOLUTE AUTO 0.33 K/mm3 (0.00-0.68); EOSINOPHILS PERCENT AUTO 3 % (0-6); Hematocrit 25.6 % (33.0-51.0); Hemoglobin 7.9 g/dL (11.5-16.0); IMMATURE GRAN ABSOLUTE AUTO 0.05 K/mm3 (0.00-0.10); IMMATURE GRAN PERCENT AUTO 1 % (0-1); LYMPHOCYTES ABSOLUTE AUTO 0.68 K/mm3 (0.84-5.20); LYMPHOCYTES PERCENT AUTO 7 % (21-46); MONOCYTES ABSOLUTE AUTO 0.75 K/mm3 (0.16-1.47); MONOCYTES PERCENT AUTO 8 % (4-13); Mean Corpuscular HGB Conc 30.9 g/dL (31.5-36.5); Mean Corpuscular Volume 93 fL (80-100); NEUTROPHILS ABSOLUTE AUTO 8.07 K/mm3 (1.96-9.15); NEUTROPHILS PERCENT AUTO 81 % (41-73); NRBC ABSOLUTE 0.00 K/mm3 (0.00-0.02); NRBC Auto 0.0 /100 WBC (0.0-0.2); Platelet Count 294 K/mm3 (150-400); RDW Coefficient Variation 14.6 % (11.7-14.2); RDW Standard Deviation 49.5 fL (35.1-46.3)
[2025-06-20 15:47] LABS: Alanine Aminotransfer (ALT/SGP 15.0 U/L (12-78); Albumin, Blood 3.0 g/dL (3.4-5.0); Albumin/Globulin Ratio 0.9 (0.8-1.8); Anion Gap 6.0 mmol/L (3-11); Aspartate Aminotrans (AST/SGOT 11.0 U/L (12-37); Bilirubin, Total 0.3 mg/dL (0.1-1.0); Blood Urea Nitrogen 19.0 mg/dL (8-24); CO2, Blood 28.0 mmol/L (21-32); Calcium, Blood 8.9 mg/dL (8.5-10.1); Chloride, Blood 104.0 mmol/L (98-108); Creatinine, Blood 1.05 mg/dL (0.40-1.00); Globulin, Blood 3.3 g/dL (2.2-4.0); Glucose, Blood 105.0 mg/dL (70-99); Potassium, Blood 4.6 mmol/L (3.5-5.5); Sodium, Blood 133.0 mmol/L (136-145); Total Protein, Blood 6.3 g/dL (6.4-8.2)
[2025-06-20 18:05] VITALS: BP 124/79
== END 2025-06-20 18:06 | disposition home or self-care (01) ==
LOC: ER 14:51
PROVIDERS: Student in an Organized Health Care Education/Training Program
DX: R06.02 Shortness of breath (principal); I12.9 Hypertensive chronic kidney disease with stage 1 through stage 4 chronic kidney disease, or unspecified chronic kidney disease; N18.9 Chronic kidney disease, unspecified; D64.9 Anemia, unspecified; M71.22 Synovial cyst of popliteal space [Baker], left knee; G47.33 Obstructive sleep apnea (adult) (pediatric); I25.2 Old myocardial infarction; I25.10 Atherosclerotic heart disease of native coronary artery without angina pectoris; J44.9 Chronic obstructive pulmonary disease, unspecified; Z99.81 Dependence on supplemental oxygen; Z87.891 Personal history of nicotine dependence; Z90.5 Acquired absence of kidney; Z85.528 Personal history of other malignant neoplasm of kidney; Z88.1 Allergy status to other antibiotic agents; Z88.5 Allergy status to narcotic agent; Z88.8 Allergy status to other drugs, medicaments and biological substances; Z91.040 Latex allergy status; Z91.048 Other nonmedicinal substance allergy status; Z79.82 Long term (current) use of aspirin; Z79.899 Other long term (current) drug therapy
CPT/HCPCS: 71045; 80053; 83880; 84484; 85025; 93005; 93010; 93971; 99285-25

== ENCOUNTER → 2025-07-20 | Outpatient (CLI) | payer OTHER ==
[2025-07-20 12:45] LABS: BASOPHILS ABSOLUTE AUTO 0.06 K/mm3 (0.00-0.23); BASOPHILS PERCENT AUTO 1 % (0-2); EOSINOPHILS ABSOLUTE AUTO 0.41 K/mm3 (0.00-0.68); EOSINOPHILS PERCENT AUTO 4 % (0-6); Hematocrit 25.4 % (33.0-51.0); Hemoglobin 7.9 g/dL (11.5-16.0); IMMATURE GRAN ABSOLUTE AUTO 0.07 K/mm3 (0.00-0.10); IMMATURE GRAN PERCENT AUTO 1 % (0-1); LYMPHOCYTES ABSOLUTE AUTO 0.73 K/mm3 (0.84-5.20); LYMPHOCYTES PERCENT AUTO 8 % (21-46); MONOCYTES ABSOLUTE AUTO 0.76 K/mm3 (0.16-1.47); MONOCYTES PERCENT AUTO 8 % (4-13); Mean Corpuscular HGB Conc 31.1 g/dL (31.5-36.5); Mean Corpuscular Volume 92 fL (80-100); NEUTROPHILS ABSOLUTE AUTO 7.56 K/mm3 (1.96-9.15); NEUTROPHILS PERCENT AUTO 79 % (41-73); NRBC ABSOLUTE 0.00 K/mm3 (0.00-0.02); NRBC Auto 0.0 /100 WBC (0.0-0.2); Platelet Count 272 K/mm3 (150-400); RDW Coefficient Variation 14.1 % (11.7-14.2); RDW Standard Deviation 47.7 fL (35.1-46.3)
[2025-07-20 13:03] LABS: Alanine Aminotransfer (ALT/SGP 28.0 U/L (12-78); Albumin, Blood 3.0 g/dL (3.4-5.0); Albumin/Globulin Ratio 0.9 (0.8-1.8); Anion Gap 13.0 mmol/L (3-11); Aspartate Aminotrans (AST/SGOT 25.0 U/L (12-37); Bilirubin, Total 0.2 mg/dL (0.1-1.0); Blood Urea Nitrogen 23.0 mg/dL (8-24); CO2, Blood 26.0 mmol/L (21-32); Calcium, Blood 8.8 mg/dL (8.5-10.1); Chloride, Blood 101.0 mmol/L (98-108); Creatinine, Blood 1.33 mg/dL (0.40-1.00); Globulin, Blood 3.4 g/dL (2.2-4.0); Glucose, Blood 108.0 mg/dL (70-99); Potassium, Blood 4.5 mmol/L (3.5-5.5); Sodium, Blood 135.0 mmol/L (136-145); Thyroid Stimulating Hormone 1.812 uIU/mL (0.360-4.800); Total Protein, Blood 6.4 g/dL (6.4-8.2)
== END ==
LOC: LAB SHORT 12:40 → LAB 12:40
PROVIDERS: Physician Assistant
DX: R53.83 Other fatigue (principal)
CPT/HCPCS: 80053; 83880; 84443; 84484; 85025

== ENCOUNTER 2025-09-22 01:36 | Observation (INO) | payer OTHER ==
[~2025-09-22] VITALS: Ht 167.6 cm; Wt 76.0 kg
[2025-09-22] VITALS (15 sets, daily range): BP systolic 112–145; BP diastolic 58–114
[2025-09-22] MEDS ORDERED: FLU VACC TS2025(65UP)/MF59C/PF 45 MCG/0.5 ML SYRINGE IM SCH (05:05)
[2025-09-22] MEDS ORDERED: NS 1,000 ML IV SCH (05:05)
[2025-09-22 05:53] LABS: BASOPHILS ABSOLUTE AUTO 0.04 K/mm3 (0.00-0.23); BASOPHILS PERCENT AUTO 1 % (0-2); EOSINOPHILS ABSOLUTE AUTO 0.32 K/mm3 (0.00-0.68); EOSINOPHILS PERCENT AUTO 4 % (0-6); Hematocrit 18.9 % (33.0-51.0); IMMATURE GRAN ABSOLUTE AUTO 0.06 K/mm3 (0.00-0.10); IMMATURE GRAN PERCENT AUTO 1 % (0-1); LYMPHOCYTES ABSOLUTE AUTO 0.54 K/mm3 (0.84-5.20); LYMPHOCYTES PERCENT AUTO 7 % (21-46); MONOCYTES ABSOLUTE AUTO 0.50 K/mm3 (0.16-1.47); MONOCYTES PERCENT AUTO 6 % (4-13); Mean Corpuscular HGB Conc 28.6 g/dL (31.5-36.5); Mean Corpuscular Volume 101 fL (80-100); NEUTROPHILS ABSOLUTE AUTO 6.30 K/mm3 (1.96-9.15); NEUTROPHILS PERCENT AUTO 81 % (41-73); NRBC ABSOLUTE 0.00 K/mm3 (0.00-0.02); NRBC Auto 0.0 /100 WBC (0.0-0.2); Platelet Count 173 K/mm3 (150-400); RDW Coefficient Variation 16.6 % (11.7-14.2); RDW Standard Deviation 62.3 fL (35.1-46.3)
[2025-09-22] MEDS ORDERED: PANT40 PO (05:58)
[2025-09-22] MEDS ORDERED: PRAM.125 PO (05:58)
[2025-09-22] MEDS ORDERED: VENL150ER PO (06:00)
[2025-09-22] MEDS ORDERED: FURO20 PO (06:01)
[2025-09-22] MEDS ORDERED: OXYC10TA19 PO (06:03)
[2025-09-22 06:12] LABS: Alanine Aminotransfer (ALT/SGP 24.0 U/L (12-78); Albumin, Blood 2.6 g/dL (3.4-5.0); Albumin/Globulin Ratio 0.9 (0.8-1.8); Anion Gap 8.0 mmol/L (3-11); Aspartate Aminotrans (AST/SGOT 19.0 U/L (12-37); Bilirubin, Total 0.2 mg/dL (0.1-1.0); Blood Urea Nitrogen 15.0 mg/dL (8-24); CO2, Blood 25.0 mmol/L (21-32); Calcium, Blood 8.0 mg/dL (8.5-10.1); Chloride, Blood 112.0 mmol/L (98-108); Creatinine, Blood 0.99 mg/dL (0.40-1.00); Globulin, Blood 2.8 g/dL (2.2-4.0); Glucose, Blood 96.0 mg/dL (70-99); Potassium, Blood 4.2 mmol/L (3.5-5.5); Sodium, Blood 141.0 mmol/L (136-145); Total Protein, Blood 5.4 g/dL (6.4-8.2)
[2025-09-22 06:48] LABS: Hemoglobin 5.4 g/dL (11.5-16.0)
[2025-09-22 07:05] LABS: Alanine Aminotransfer (ALT/SGP 29 U/L (12-78); Albumin, Blood 3.1 g/dL (3.4-5.0); Albumin/Globulin Ratio 1.0 (0.8-1.8); Aspartate Aminotrans (AST/SGOT 20 U/L (12-37); Bilirubin, Total 0.2 mg/dL (0.1-1.0); Blood Urea Nitrogen 19 mg/dL (8-24); CO2, Blood 27 mmol/L (21-32); Calcium, Blood 9.2 mg/dL (8.5-10.1); Creatinine, Blood 1.15 mg/dL (0.40-1.00); Ethanol (Alcohol), Blood, Med <3 mg/dL; Globulin, Blood 3.0 g/dL (2.2-4.0); Glucose, Blood 110 mg/dL (70-99); Magnesium, Blood 2.1 mg/dL (1.6-2.4); Potassium, Blood 4.4 mmol/L (3.5-5.5); Total Protein, Blood 6.1 g/dL (6.4-8.2)
[2025-09-22 07:06] LABS: Anion Gap 9 mmol/L (3-11); Chloride, Blood 107 mmol/L (98-108); Sodium, Blood 139 mmol/L (136-145)
[2025-09-22 07:17] LABS: BASOPHILS ABSOLUTE AUTO 0.08 K/mm3 (0.00-0.23); BASOPHILS PERCENT AUTO 1 % (0-2); EOSINOPHILS ABSOLUTE AUTO 0.39 K/mm3 (0.00-0.68); EOSINOPHILS PERCENT AUTO 4 % (0-6); Hematocrit 26.2 % (33.0-51.0); Hemoglobin 7.7 g/dL (11.5-16.0); IMMATURE GRAN ABSOLUTE AUTO 0.09 K/mm3 (0.00-0.10); IMMATURE GRAN PERCENT AUTO 1 % (0-1); LYMPHOCYTES ABSOLUTE AUTO 0.88 K/mm3 (0.84-5.20); LYMPHOCYTES PERCENT AUTO 8 % (21-46); MONOCYTES ABSOLUTE AUTO 0.82 K/mm3 (0.16-1.47); MONOCYTES PERCENT AUTO 8 % (4-13); Mean Corpuscular HGB Conc 29.4 g/dL (31.5-36.5); Mean Corpuscular Volume 97 fL (80-100); NEUTROPHILS ABSOLUTE AUTO 8.18 K/mm3 (1.96-9.15); NEUTROPHILS PERCENT AUTO 78 % (41-73); NRBC Auto 0.0 /100 WBC (0.0-0.2); Platelet Count 280 K/mm3 (150-400); RDW Coefficient Variation 16.9 % (11.7-14.2); RDW Standard Deviation 59.4 fL (35.1-46.3)
[2025-09-22 07:18] LABS: NRBC ABSOLUTE 0.00 K/mm3 (0.00-0.02)
[2025-09-22 08:26] LABS: BASOPHILS ABSOLUTE AUTO 0.06 K/mm3 (0.00-0.23); BASOPHILS PERCENT AUTO 1 % (0-2); EOSINOPHILS ABSOLUTE AUTO 0.38 K/mm3 (0.00-0.68); EOSINOPHILS PERCENT AUTO 4 % (0-6); Hematocrit 23.6 % (33.0-51.0); Hemoglobin 7.0 g/dL (11.5-16.0); IMMATURE GRAN ABSOLUTE AUTO 0.06 K/mm3 (0.00-0.10); IMMATURE GRAN PERCENT AUTO 1 % (0-1); LYMPHOCYTES ABSOLUTE AUTO 0.70 K/mm3 (0.84-5.20); LYMPHOCYTES PERCENT AUTO 7 % (21-46); MONOCYTES ABSOLUTE AUTO 0.84 K/mm3 (0.16-1.47); MONOCYTES PERCENT AUTO 9 % (4-13); Mean Corpuscular HGB Conc 29.7 g/dL (31.5-36.5); Mean Corpuscular Volume 97 fL (80-100); NEUTROPHILS ABSOLUTE AUTO 7.53 K/mm3 (1.96-9.15); NEUTROPHILS PERCENT AUTO 79 % (41-73); NRBC ABSOLUTE 0.00 K/mm3 (0.00-0.02); NRBC Auto 0.0 /100 WBC (0.0-0.2); Platelet Count 254 K/mm3 (150-400); RDW Coefficient Variation 16.8 % (11.7-14.2); RDW Standard Deviation 59.2 fL (35.1-46.3)
[2025-09-22] MEDS ORDERED: Enoxaparin 40 MG/0.4 ML SYR SC SCH (09:00)
--- NOTE | 2025-09-22 10:05 | NUR ---
PT ARRIVES TO ICU 16 PCU STATUS FROM ER. SLID TO BED WITH SLIDER SHEET. PT IS A/O X4. DENIES PAIN. PT CHANGED TO OXYMASK PER REQUEST. PT STATES SHE IS A MOUTH BREATHER THEREFORE OXYMASK WORKS BETTER. DYSPNEA WITH EXERTION. PUREWICK PLACED PER PT REQUEST WELL. PT HAS ONEILL/SHARMA SPUTUM WHICH PT STATES HAS BEEN OCCURING SINCE SHE QUIT SMOKING 4 MONTHS AGO. USES CALL LIGHT APPROPRIATELY. NO SIGN OF DISTRESS.
[2025-09-22 10:11] LABS: Ferritin, Serum 328.0 ng/mL (8-252); Total Iron Binding Capacity 300.0 ug/dL (250-450)
[2025-09-22] MEDS ORDERED: Iron Dextran 50 MG / ML 2ML Vial IV ONE (12:20)
[2025-09-22] MEDS ORDERED: Iron Dextran 975 MG in NS 250 ML IV ONE (13:20)
[2025-09-22] MEDS ORDERED: METO25ER PO (13:21)
[2025-09-22] MEDS ORDERED: Vitamin B-12100 MCG PO (13:23)
[2025-09-22] MEDS ORDERED: VITAMIN D5000 UNIT PO (13:23)
--- NOTE | 2025-09-22 15:04 | NUR ---
CALLED TO ROOM URGENTLY BY FAMILY. FAMILY DESCRIBES EPISODE WHERE PT STATES "I NEED HELP", THEN HAS BLANK STARE, THEN DESATS TO 86%. MULTIPLE RN'S TO BEDSIDE. PT CAME OUT OF EPISODE QUICKLY AND SPO2 RECOVERS TO 99% QUICKLY. FAMILY STATES THIS IS SAME TYPE OF EPISODE WITNESSED AT HOME. DR. PHILLIP NOTIFIED, NO NEW ORDERS.
--- NOTE | 2025-09-22 18:13 | NUR ---
SUMMARY PT SITTING UP IN BED VISITING WITH FAMILY. A/O TO PERSON AND PLACE. FORGETFUL AT TIMES BUT REORIENTS EASILY. PT HAS HAD ONE EPISODE SINCE BEING IN ICU WITH BLANK STARE. SEE PREVIOUS NOTE. MRI OF HEAD DONE. PT IS ON OXYMASK 5-7 L. PT PREFERS OXYMASK D/T MOUTH BREATHING. FAMILY AT BEDSIDE, NO SIGN OF DISTRESS.
--- NOTE | 2025-09-23 02:15 | NUR ---
TRANSFER SUMMARY PT RESTING IN BED, DAUGHTER AT BEDSIDE. AWAKENS TO VERBAL STIMULI, CONFUSED, PLEASANT AND REDIRECTABLE. AFIB, HR 110'S, BP STABLE. ON 6L OXYMASK, SATS >94%. PUREWICK IN PLACE. NO BM THIS SHIFT, NEEDS STOOL SAMPLE, UNABLE TO COLLECT ON MY SHIFT. PT DID NOT HAVE ANY SEIZURE-LIKE ACTIVITY THIS SHIFT. REPORT GIVEN TO ONCOMING RN, ALL QUESTIONS ANSWERED. PT BELONGINGS AND CHART BROUGHT TO NEW ROOM WITH PT AND FAMILY. NO ACUTE EVENTS.
[2025-09-23 02:18] VITALS: BP 144/90
--- NOTE | 2025-09-23 02:26 | NUR ---
ARRIVAL TO UNIT REPORT RECEIVED FROM PROGRAMS MANAGER, PT ARRIVES TO UNIT AT 0205. PT TRANFERRED TO ICU BED VIA SLIDE SHEET. SHE IS ALERT AND ORIENTED X2. SHE DENIES PAIN AT THIS TIME. ON 5L VIA FACEMASK, SATS ABOVE 92%. SHE IS IN AFLUTTER UPON ARRIVAL PER SALES PROMOTION DIRECTOR WITH HR IN 100'S. BP STABLE. PUREWICK IN PLACE AND DRAINING TO SUCTION. DAUGHTER, ROHINI, AT BEDSIDE.
[2025-09-23 03:35] VITALS: BP 157/76
[2025-09-23 03:58] LABS: Hematocrit 27.3 % (33.0-51.0); Hemoglobin 8.2 g/dL (11.5-16.0); Mean Corpuscular HGB Conc 30.0 g/dL (31.5-36.5); Mean Corpuscular Volume 97 fL (80-100); NRBC ABSOLUTE 0.00 K/mm3 (0.00-0.02); NRBC Auto 0.0 /100 WBC (0.0-0.2); Platelet Count 264 K/mm3 (150-400); RDW Coefficient Variation 16.3 % (11.7-14.2); RDW Standard Deviation 57.7 fL (35.1-46.3)
--- NOTE | 2025-09-23 06:19 | NUR ---
SHIFT SUMMARY PT REMAINED A/OX3, DENIED PAIN, ON 5L VIA FACE MASK, SATS ABOVE 92%. AFLUTTER, HR 90 S-130 S. DTR REMAINS AT BEDSIDE. NO SEIZURE ACTIVITY, NO ACUTE EVENTS THIS SHIFT.
[2025-09-23 07:38] VITALS: BP 138/96
--- NOTE | 2025-09-23 07:38 | NUR ---
Up to BSC with 1 person assist, gait belt and walker. Tolerated well, HR briefly 135, and needed 5-6 l/min of O2 to keep spo2 greater than 90. On 4 l/min her spo2 dropped to 75 while on BSC. Pt reported no dyspnea, no pain. Up to recliner for breakfast, chair alarm in place. Daughter Precious in room at bedside.
--- NOTE | 2025-09-23 08:46 | NUR ---
Pt reports occasional ShOB. D dimer ordered. if elevated, Dr. James will order CT to rule out PE. If d dimer WNL, home o2 eval only.
[2025-09-23] MEDS ORDERED: Cholecalciferol 1000 Unit Tablet (=25MCG) PO SCH (09:00)
--- NOTE | 2025-09-23 09:29 | NUR ---
D dimer 1.12. Notified Dr. James by telephone.
--- NOTE | 2025-09-23 11:01 | NUR ---
notified distribution engineering technologist that 20g IV in AC done, pt can go for imaging.
[2025-09-23] MEDS ORDERED: KEPPRA250 M1 PO (12:46)
--- NOTE | 2025-09-23 13:12 | NUR ---
Discharge instructions reviewed with the patient and her daughter/caregiver Precious at bedside. Precious is going home to [place] to get the pt's portable oxygen so that she can go home. IVs were removed by student RN supervised by myself.
== END 2025-09-23 14:10 | disposition home or self-care (01) ==
LOC: ER 01:36 → ERHOLD 01:37 → ICUE 01:37 → ERHOLD 01:37 → EDBEDREQ 05:00 → ICUE 10:13 → PCU 09-23 02:03
PROVIDERS: Emergency Medicine; Internal Medicine; ADMIT Internal Medicine
DX: R56.9 Unspecified convulsions (principal); J44.9 Chronic obstructive pulmonary disease, unspecified; I10 Essential (primary) hypertension; I25.10 Atherosclerotic heart disease of native coronary artery without angina pectoris; J96.21 Acute and chronic respiratory failure with hypoxia; I48.20 Chronic atrial fibrillation, unspecified; Z87.891 Personal history of nicotine dependence; Z88.5 Allergy status to narcotic agent; Z91.040 Latex allergy status; Z88.8 Allergy status to other drugs, medicaments and biological substances; Z88.1 Allergy status to other antibiotic agents; Z91.048 Other nonmedicinal substance allergy status; Z79.899 Other long term (current) drug therapy
CPT/HCPCS: 36415; 70450; 70496; 70498; 70551; 71045; 71260; 80053; 80320; 82550; 82728; 83540; 83550; 83605; 83735; 84146; 84484; 85025; 85027; 85379; 93005; 93010; 96361; 96365; 96366; 96367; 96372; 96374; 96376; 99285-25; A6590; A9270; G0378; J1650; J1750; J1953; J7030; J7050; J7120; Q9967